=== PATIENT | female | born 1955 | race Hispanic/Latino ===

== ENCOUNTER 2020-11-10 18:59 | Inpatient (IN) | payer MEDICARE, MEDICAID ==
[2020-11-10] MEDS ORDERED: Vancomycin 1 GM/200 ML BAG ONE (20:28)
[2020-11-10] MEDS ORDERED: Acetaminophen 500 MG TAB ONE (20:28)
--- NOTE | 2020-11-10 20:33 | RAD ---
Exam: Right toes 2 views HISTORY: Gangrenous second toe. FINDINGS: Soft tissue ulceration and subcutaneous emphysema suggesting soft tissue abscess. Mild bone demineralization and lucency suggesting osteomyelitis involving the middle and proximal phalanx. There appears to be a fracture involving the distal aspect of the proximal phalanx. IMPRESSION: Osteomyelitis, cellulitis and fracture.
--- NOTE | 2020-11-10 20:33 | RAD ---
Exam: Chest one view HISTORY:Tachycardia. Comparison: 02/14/2014 FINDINGS: Cardiac silhouette: Normal Aorta: Unremarkable Pulmonary vessels: Normal Costophrenic angles: Clear LUNGS: No masses or consolidation. Pneumothorax: None Osseous abnormalities: None IMPRESSION: No acute cardiopulmonary process.
[2020-11-10 20:42] LABS: #Eosinphils 0.2 thou/uL (0.0-0.7); #Lymphocytes 1.2 thou/uL (1.20-3.40); #Monocytes 0.6 thou/uL (0.11-0.59); #Neutrophils 11.8 thou/uL (1.40-6.50); %Basophils 0.1 % (0.0-1.0); %Eosinophils 1.2 % (0.0-10.0); %Monocytes 4.3 % (0.0-10.0); %Neutrophils 85.4 % (42.0-75.0); Hemoglobin 9.7 g/dL (12.0-16.0); Mean Corpuscular HGB CONC 33.6 g/dL (32.0-36.0); Mean Corpuscular Hemoglobin 28.1 pg (27.0-31.0); Mean Corpuscular Volume 83.6 fL (78.0-98.0); Mean Platelet Volume 7.2 fL (7.4-10.4); Platelet Count 505 thou/uL (130-400); RBC Distribution Width 11.6 % (11.5-14.5); Red Blood Cell (RBC) Count 3.46 mill/uL (4.20-5.40); White Blood Cell (WBC) Count 13.9 thou/uL (4.8-10.8)
[2020-11-10 20:48] LABS: PTT 35.5 sec (22.9-36.1); Prothrombin Time 13.7 sec (12.0-14.7)
[2020-11-10 21:04] LABS: ALT (SGPT) 8 U/L (8-55); AST (SGOT) 6 U/L (5-34); Albumin 3.5 g/dL (3.4-4.8); Alkaline Phosphatase 103 U/L (40-110); Anion Gap 15 mmol/L (10-20); BUN (Urea Nitrogen) 28 mg/dL (9.8-20.1); Bilirubin, Total 0.2 mg/dL (0.2-1.2); CK (CPK) 16 U/L (29-168); CRP (Inflammatory) 16.38 mg/dL (= or < 0.5); Calc. Creatinine Clearance 0 mL/min (70-130); Calcium 9.5 mg/dL (7.8-10.44); Carbon Dioxide 27 mmol/L (23-31); Chloride 103 mmol/L (98-107); Glucose 185 mg/dL (80-115); Potassium 4.3 mmol/L (3.5-5.1); Protein, Total 8.5 g/dL (6.0-8.3); Sodium 141 mmol/L (136-145)
--- NOTE | 2020-11-10 21:37 | PDOC.FPRHP ---
- History of Present Illness Chief Complaint: R foot pain History of Present Illness: Pt is a 65 yo female with hx of DM, PVD, L AKA who presents with R foot pain. She is a poor historian, with possible ID, and no family was at bedside or able to be reached. She says her right foot was red and hurting "for a while". She says she lives at home with her and uses a wheelchair to get around. She was able to tell us that she has been taking her medicine as prescribed. She admits to nausea and vomiting but denies fever, body aches, cough congestion, SOB or CP. ED Course: Vancomycin, Unsayn, 1L NS - Allergies/Adverse Reactions Allergies Allergy/AdvReac Type Severity Reaction Status Date / Time No Known Allergies Allergy Verified 11/10/20 23:34 - Home Medications Medication Instructions Recorded Confirmed Type Aspirin [Ecotrin Low Strength] 81 mg PO DAILY #0 tab 04/01/14 11/10/20 Rx Lisinopril [Zestril] 2.5 mg PO DAILY #0 tab 04/01/14 11/10/20 Rx metFORMIN [Glucophage] 850 mg PO BID-WM 08/21/15 11/10/20 History - History PMHx: DMII, HTN, PVD PSHx: left AKA (2013) FHx: non-contributory Social: Denies tobacco use, says she drinks alcohol on occasion, denies drug use. Lives with in [place]. - Review of Systems General: denies: fever/chills Eyes: denies: eye pain, vision changes ENT: denies: nasal congestion, rhinorrhea Respiratory: denies: cough, congestion, shortness of breath Cardiovascular: denies: chest pain, edema Gastrointestinal: reports: nausea, vomiting Genitourinary: denies: dysuria Skin: reports: lesions Musculoskeletal: reports: pain - Vital signs BP: 131/98 HR: 108 RR: 29 Tmax: 99.6F Pox: 99% on RA Wt: 40kg - Physical Exam Constitutional: NAD HEENT: normocephalic and atraumatic, no scleral icterus, grossly normal vision, grossly normal hearing Neck: supple, trachea midline Heart: normal S1/S2, no murmurs/rubs/gallops -Heart: tachycardic, regular rhythm Lungs: CTAB, no respiratory distress, no wheezing Abdomen: soft, non-tender, bowel sounds present -Musculoskeletal: L AKA, LUE contracture Neurological: no focal deficit -Neurological: decreased sensation of R LE -Skin: R second toe gangrenous, erythema at base of second toe and on plantar surface of foot Heme/Lymphatic: no unusual bruising or bleeding FMR H&P: Results - Labs Result Diagrams: 11/11/20 06:44 11/11/20 06:44 Lab results: WBC 13.9 thou/uL (4.8-10.8) H 11/10/20 20:27 Hgb 9.7 g/dL (12.0-16.0) L 11/10/20 20:27 Hct 29.0 % (36.0-47.0) L 11/10/20 20:27 MCV 83.6 fL (78.0-98.0) 11/10/20 20:27 Plt Count 505 thou/uL (130-400) H 11/10/20 20:27 Neutrophils % 85.4 % (42.0-75.0) H 11/10/20 20:27 Sodium 141 mmol/L (136-145) 11/10/20 20:27 Potassium 4.3 mmol/L (3.5-5.1) 11/10/20 20:27 Chloride 103 mmol/L (98-107) 11/10/20 20:27 Carbon Dioxide 27 mmol/L (23-31) 11/10/20 20:27 BUN 28 mg/dL (9.8-20.1) H 11/10/20 20:27 Creatinine 1.03 mg/dL (0.6-1.1) 11/10/20 20:27 Glucose 185 mg/dL (80-115) H 11/10/20 20:27 Lactic Acid 1.3 mmol/L (0.5-2.2) 11/10/20 20:27 Calcium 9.5 mg/dL (7.8-10.44) 11/10/20 20:27 Total Bilirubin 0.2 mg/dL (0.2-1.2) 11/10/20 20:27 AST 6 U/L (5-34) 11/10/20 20:27 ALT 8 U/L (8-55) 11/10/20 20:27 Alkaline Phosphatase 103 U/L (40-110) 11/10/20 20:27 Creatine Kinase 16 U/L (29-168) L 11/10/20 20:27 C-Reactive Protein 16.38 mg/dL (= or < 0.5) H 11/10/20 20:27 Serum Total Protein 8.5 g/dL (6.0-8.3) H 11/10/20 20:27 Albumin 3.5 g/dL (3.4-4.8) 11/10/20 20:27 FMR H&P: A/P - Plan 65yo female w/ PMH DM, PVD, L AKA who presents with R foot pain. #Sepsis 2/2 osteomyelitis and surrounding cellulitis of R second toe -WBC 12.9, HR 120 on arrival to ED, Tmax 99.8F -XR R foot: osteomyelitis, cellulitis, fracture of 2nd toe -hx of PVD and L AKA in 2013 -CRP 16, pending procal, BCx -Abx: Vanc and Unasyn given in ED, will not continue Unasyn but will add cefe pime -s/p 1L NS in ED, will continue mIVF -will consult CV surgery in the morning for further evaluation #anemia -H/H 9.7, MCV 84 -no recorded history of anemia or workup -pending iron, ferritin, TIBC, B12, folate #suspected CKD3 vs JESSICA -BUN/Cr 28/1.03, GFR 54 -no recent labs for comparison -will recheck in am #DM -pending A1c -held metformin for now for possible contrast studies tomorrow -accuchecks ACHS, mild SSI #HTN -continue home meds #PVD -added statin, may need to adjust dose pending lipid panel Code: Full PCP: Obey IVF: LR @ 80ml/hr DVT ppx: held pending surgery recs Dispo: Stable, admit to medical, continue broad spectrum Abx, will consult CV surgery in am, appreciate recs. LOS>48hrs FMR H&P: Upper Level - Pertinent history PCP: JORDAN- Frida Barnhart HPI: 65YOF with a PMH notable for DMII, HTN, PVD s/p left AKA & MR who presented to the ED via EMS for right toe pain. Of note, history from patient was limited 2/2 intellectual impairment and dysarthria noted on exam. Basic report from the patient was that she has had right toe pain for not very long that has not gotten any better prompting her visit to the ED for evaluation. Endorses some associated nausea but denied any associated fever/chills. Does endorse foot redness and swelling as well. ED course: IV vancomycin & unasyn, 1L NS & 1g PO tylenol - Pertinent findings Labs/Imaging: right foot x-ray: osteomyelitis in middle & proximal second phalanx with surrounding cellulitis and fracture of distal proximal second phalanx of right foot WBC 13.9 CRP 16 Plts 505 Hgb 9.7 BUN/Cr 28/1.03 eGFR 54 BG 185 REVIEW OF SYSTEMS: 12 point ROS negative except what was mentioned in HPI Vitals: BP: 131/98 HR: 108 RR: 29 Tmax: 99.6F Pox: 99% on RA Wt: 40.8kg PHYSICAL EXAMINATION: General: Sitting up in bed in NAD HEENT: normocephalic atraumatic Neck: Supple. Full ROM. Heart/Cardiovascular System: Tachycardic with regular rhythm, no murmurs noted Lungs/Respiratory System: CTAB Abdomen/Gastro-Intestinal System: soft w/ no mild suprapubic abdominal tenderness, normal bowel sounds Extremities: Warm R extremity. s/p left AKA. R foot and leg with decreased sensation but NL ROM. Erythema over bottom of right foot and gangrenous 2nd toe on right foot. Trace palpable dorsalis pedis pulse noted in R foot. Neuro: participant administrator grossly intact; significant dysarthria with contracture in LUE noted; nonfocal Skin: gangrenous 2nd toe on right foot with erythema over plantar surface of foot and around based of second toe - Plan Date/Time: 11/10/202135 [place], have evaluated this patient and agree with findings/plan as outlined by intern product marketing manager resident. Pertinent changes/additions are listed here. A/P: 65YOF with a PMH notable for DMII, HTN, PVD s/p left AKA & MR who presented to the ED via EMS for right toe pain & was found to be septic 2/2 osteomyelitis & cellulitis of the right second toe. #Sepsis 2/2 osteomyelitis, cellulitis & fracture of right second toe: -Patient met sepsis criteria on arrival with a HR in the 110-120s with a WBC count of 13.9 in the setting of osteo with surrounding cellulitis identified on exam & x-ray. Was given IV vanc & unasyn in the ED as well as 1L bolus. Will continue IV vanc but will switch to cefepime instead of unasyn for better GN coverage. Bld cultures & procal pending. Will continue mIVFs overnight as patient was still tachycardic on exam. PRN Tylenol for pain control. #JESSICA vs. CKDII-III: - Per chart review baseline renal function eGFR has varied from 50-80s since 2013. No recent labs for comparison but 54 on presentation today w/ Cr of 1.03. Will continue mIVFs & recheck w/ AM labs. Will renally dose meds PRN. #Normocytic anemia: Hgb of 9.5 on presentation w/ NL MCV. Will order iron studies & B12/folate levels to workup possible etiologies for this. #DMII: - A1c pending. Per chart review was 10.3 in 02/2014. Will hold metformin pending possible procedure in AM and will continue ACHS accuchecks w/ mild SSI in the meantime. #HTN: - Will resume home Lisinopril. #PVD s/p left AKA: -Per chart review aortogram from 2013 showed severe B/L PVD. Will plan to consult CV surg in the AM to determine level of amputation for current infection as suspect PVD has worsened as patient is not on any statin therapy. Will start that tonight & continue home ASA. Lipid panel pending. PCP: CHAZ Barnhart ABx: Vancomycin & Cefepime (11/10) IVFs: LR @ 80mL/hr VTE PPX: Holding for possible procedure tomorrow GI PPX: None Code status: FULL CODE Dispo: Will admit to medical for continued IV abx with plans to consult vascular surgery in the AM for evaluation for medically indicated amputation in her RLE. Addendum - Attending - Attending Attestation Date/Time: 11/10/20 2841 I personally evaluated the patient and discussed the management with Dr. Garcia I agree with the History, Examination, Assessment and Plan documented above with any addition or exceptions noted below - 65YOF with a PMH notable for DMII, HTN, PVD s/p left AKA & MR who presented to the ED via EMS for right toe pain. Of note, history from patient was limited 2/2 intellectual impairment and dysarthria noted on exam. Basic report from the patient was that she has had right toe pain for not very long that has not gotten any better prompting her visit to the ED for evaluation. Endorses some associated nausea but denied any fever/chills. Does endorse foot redness and swelling as well. Afebrile BP 131/98 P105 Exam repeated by me and agree with resident's findings. Labs: WBC= 13.9, Um=790, K=4.3, Dv=177, CO2=27, BUN/Cr=28/1.03, Dmxi=385, CRP=16.38, Lactic acid=1.3 Toe x-ray= c/w osteomyelitis of 2nd toe. A/P: 1) Sepsis secondary to osteomyelitis of right 2nd toe - Admit to medical. Start vanc/Cefepime. Blood cultures obtained. 2) Osteomyelitis with gangrene - consult CV surgery as patient has known PVD. 3) DM- monitor BG.
[2020-11-10] MEDS ORDERED: Ampicillin 2 GM VIAL ONE (21:38)
[2020-11-10] MEDS ORDERED: Ampicillin/Sulbactam 3 GM in Sodium Chloride 0.9% 100 ML IVPB SCH (21:45)
[2020-11-10] MEDS ORDERED: Dextrose 5% in Water 1,000 ML IV PRN (22:17)
[2020-11-10] MEDS ORDERED: Dextrose 50% Abboject 50 ML SYRINGE SLOW IVP PRN (22:17)
[2020-11-10] MEDS ORDERED: Ondansetron PF 4 MG/2 ML Vial IVP PRN (22:17)
[2020-11-10] MEDS ORDERED: Ondansetron ODT 4 MG TAB PO PRN (22:17)
[2020-11-10 23:35] LABS: Hemoglobin A1c 7.8 % (4.0-6.0)
[2020-11-10 23:47] LABS: Iron 12 ug/dL (50-170); Iron Binding Capacity, Total 188 mcg/dL (265-497)
[2020-11-11 00:09] LABS: Ferritin 289.09 ng/mL (10-291)
[2020-11-11] MEDS: Lactated Ringer's 1,000 ML IV SCH ×2 (00:37→12:24)
[2020-11-11] MEDS: Cefepime 2 GM in Sodium Chloride 0.9% 100 ML IVPB SCH ×3 (00:38→23:46)
[2020-11-11 02:25] LABS: SARS-CoV-2 MS2 Positive; SARS-CoV-2 N Gene Negative; SARS-CoV-2 S Gene Negative; SARS-CoV-2 by NAA Not Detected (NotDetected); SARS-CoV-2 orf1ab Negative
[2020-11-11] MEDS: HumaLOG 300 UNITS/3 ML VIAL SC PRN ×2 (06:14→21:23)
--- NOTE | 2020-11-11 06:48 | PDOC.FM ---
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 She denies any pain. It is difficult to obtain history due to a likely intellectual deficit. She has no concerns at this time. She lives at home with her . She made comments her is a daily drinker. No fevers, chills. - Objective Vital Signs & Weight: Vital Signs (12 hours) Temp Pulse Resp BP Pulse Ox 11/11/20 05:50 98.3 F 91 16 133/67 11/10/20 22:50 98.3 F 102 H 18 165/71 H 98 Weight Weight 40.8 kg I&O: 11/09/20 11/10/20 11/11/20 06:59 06:59 06:59 Intake Total 463 Output Total 500 Balance -37 Result Diagrams: 11/11/20 06:44 11/11/20 06:44 Phys Exam - Physical Examination Constitutional: NAD HEENT: PERRLA, moist MMs Neck: no JVD, full ROM Respiratory: no wheezing, clear to auscultation bilateral Cardiovascular: RRR, no significant murmur Gastrointestinal: soft, positive bowel sounds decreased DP on R foot, L AKA Neurological: non-focal, moves all 4 limbs Psychiatric: A&O x 3 Skin: no rash, cap refill <2 seconds Dx/Plan - Plan Plan: 65yo female w/ PMH DM, PVD, L AKA who presents with R foot pain. #Sepsis (resolved) #Osteomyelitis, Dry Gangrene, PVD -consult CV Surgery, Dr. Obando has seen pt in 2016; appreciate rec's - hx of PVD, dry gangrene in 2016 but no surgery performed - L AKA due to similar event in 2016 #Normocytic anemia 2/2 iron, folate, b12 deficiency -H/H 9.7/29, MCV 84 -Start iron, folate, b12 -Likely does not have a good diet at home #suspected CKD3 vs JESSICA -BUN/Cr 03/12.03, GFR 54 -no recent labs for comparison #DM -held metformin for now for possible contrast studies tomorrow -accuchecks ACHS, mild SSI #HTN -continue home meds #PVD -added statin # CM Consult -Inquire on home setting Code: Full PCP: Obey IVF: LR @ 80ml/hr DVT ppx: held pending surgery recs Dispo: Stable, admit to medical. LOS>48hrs. Will transfer care to [facility] on 11/12. Discussed with Mary on 11/11. Addendum - Attending - Attending Attestation Date/Time: 11/11/20 5924 I personally evaluated the patient and discussed the management with Dr. Baldwin. I agree with the History, Examination, Assessment and Plan documented above with any addition or exceptions noted below. Patient here for dry gangrene and concern for osteo. She has history of prior amputation and PVD. Continue abx, wound care, consult surgery. Patient is a patient of [facility] so care sill be transitioned to the hospitalists tomorrow.
[2020-11-11 07:05] LABS: #Eosinphils 0.1 thou/uL (0.0-0.7); #Lymphocytes 1.1 thou/uL (1.20-3.40); #Monocytes 0.7 thou/uL (0.11-0.59); #Neutrophils 10.8 thou/uL (1.40-6.50); %Basophils 0.2 % (0.0-1.0); %Eosinophils 0.9 % (0.0-10.0); %Lymphocytes 8.3 % (21.0-51.0); %Monocytes 5.2 % (0.0-10.0); %Neutrophils 85.4 % (42.0-75.0); Hemoglobin 9.5 g/dL (12.0-16.0); Mean Corpuscular HGB CONC 33.1 g/dL (32.0-36.0); Mean Corpuscular Hemoglobin 27.6 pg (27.0-31.0); Mean Corpuscular Volume 83.4 fL (78.0-98.0); Mean Platelet Volume 7.4 fL (7.4-10.4); Platelet Count 441 thou/uL (130-400); RBC Distribution Width 11.5 % (11.5-14.5); Red Blood Cell (RBC) Count 3.42 mill/uL (4.20-5.40); White Blood Cell (WBC) Count 12.7 thou/uL (4.8-10.8)
[2020-11-11 07:28] LABS: ALT (SGPT) 7 U/L (8-55); AST (SGOT) 8 U/L (5-34); Albumin 3.3 g/dL (3.4-4.8); Alkaline Phosphatase 92 U/L (40-110); Anion Gap 16 mmol/L (10-20); BUN (Urea Nitrogen) 20 mg/dL (9.8-20.1); Bilirubin, Total 0.3 mg/dL (0.2-1.2); Calc. Creatinine Clearance 45 mL/min (70-130); Calcium 9.5 mg/dL (7.8-10.44); Carbon Dioxide 23 mmol/L (23-31); Chloride 105 mmol/L (98-107); Globulin 4.5 g/dL (2.4-3.5); Glucose 178 mg/dL (80-115); Potassium 4.4 mmol/L (3.5-5.1); Protein, Total 7.8 g/dL (6.0-8.3); Sodium 140 mmol/L (136-145)
[2020-11-11] MEDS ORDERED: Ferrous Sulfate 325 MG TAB PO SCH (08:00)
[2020-11-11] MEDS: Multivitamin W/ Minerals 1 TAB PO SCH (08:38)
[2020-11-11] MEDS: Aspirin 81 mg Enteric Coated Tablet PO SCH (08:38)
[2020-11-11] MEDS: Ferrous Sulfate 325 MG TAB PO SCH (08:39)
[2020-11-11] MEDS ORDERED: Cefepime 2 GM in Sodium Chloride 0.9% 100 ML IVPB SCH (09:00)
[2020-11-11] MEDS ORDERED: Vancomycin 1 GM in Premix Bag 1 BAG IVPB SCH (09:00)
[2020-11-11] MEDS ORDERED: FLU VACC QS2020-21(65YR UP)/PF 240 MCG/0.7 ML SYRINGE IM ONE (09:00)
[2020-11-11] MEDS: Folic Acid 1 MG TAB PO SCH (10:14)
[2020-11-11] MEDS: Cyanocobalamin (Vitamin B-12) 1,000 MCG TAB PO SCH (10:14)
[2020-11-11] MEDS: Lisinopril 2.5 MG TAB PO SCH (10:14)
--- NOTE | 2020-11-11 12:41 | CON ---
DATE OF CONSULTATION: 11/11/2020 REQUESTING PHYSICIAN: Dr. Baldwin. CHIEF COMPLAINT: Gangrenous changes, right 2nd toe. HISTORY OF PRESENT ILLNESS: The patient is a 65-year-old woman who in 2013 was seen and evaluated by Dr. Bronson for ischemic changes affecting her left foot. At that time, he described her as having cerebral palsy and mild mental retardation. He did arteriography at that time and described it as showing severe peripheral vascular disease bilaterally. On the left side, she had marginal vasculature with single-vessel runoff to the foot. He felt the vessels were too small to lend themselves to any sort of percutaneous intervention that offered her a femoral distal bypass in an attempt for limb salvage. At that time, she and her family refused any sort of intervention, but returned later with progression of ischemic changes and she underwent a left hqdox-hax-phxr amputation. Dr. Obando radiation oncology therapist and then Dr. Bronson saw her again in 2015 for problems related to some blistering and ulceration on the toe on the right foot. At that time, Dr. Bronson opted to not pursue any sort of interventional evaluation or treatment and evidently the ulceration healed. Since then, she has been lost to follow up. The patient is now admitted and her speech as others have noted is very difficult to understand. To my ear almost nothing she says, even resembles a recognizable word, although she seems to understand much of what I say. She seems to indicate that the foot does not hurt her, although documentation in the chart indicates that the pain in the foot is why she was brought to the emergency room. She does not walk. She does not have a prosthesis for her left bhsff-ody-sxmu amputation and she gets around in the house in her wheelchair although I was not able to understand what she was trying to explain to me about how she gets around in a wheelchair and whether she is able to bear weight on her remaining foot. PAST MEDICAL HISTORY: Also, significant for diabetes and hypertension. HOME MEDICATIONS: 1. Metformin. 2. Lisinopril. 3. Baby aspirin. SOCIAL HISTORY: She denies smoking. REVIEW OF SYSTEMS: Other than seeming to indicate that the foot does not hurt her, she is not able to provide a review of systems and there was no family available to fill in any of the gaps. PHYSICAL EXAMINATION: GENERAL: On exam, she seems alert and oriented, but her speech is unintelligible. She has some truncal obesity and very thin extremities. VITAL SIGNS: Her temperature is 97.9. She has been afebrile through this course. Heart rate 93, blood pressure 127/64, room air O2 saturations are in the low to mid 90s. NECK: She has bilateral carotid bruits. CHEST: Clear to auscultation. HEART: She has a regular rate and rhythm. EXTREMITIES: She has a left hgwxq-gjl-huvp amputation stump. She has a palpable, but somewhat diminished right femoral pulse that is associated with a bruit. I am not able to palpate popliteal or pedal pulses on the right side. The entirety of her right 2nd toe is black, but it is dry. Capillary refill in the great toe is about 2 to perhaps 3 seconds, but it is pink. There is no overt temperature demarcation. The skin below the knee appears to be very thin. Per arteriogram from 2013 was described by contemporaneous viewers as having some external iliac disease on the right side, diffuse SFA disease and then single-vessel disease through a somewhat diseased anterior tibial. Toe x-rays from this admission seemingly showed some vascular calcifications in the distal foot and foot x-rays from 2016 showed vascular calcifications in the anterior tibial and posterior tibial in the lower ankle extending well into the foot, both in the posterior tibial and dorsalis pedis distributions and then on into the digital vessels along the great toe. IMPRESSION AND RECOMMENDATIONS: There probably is not much utility in repeating arteriography. She still has a palpable femoral pulse, so I do not think that an inflow procedure is apt to make a big enough difference to allow for a simple toe amputation to heal. She might be able to heal a nmchb-oxz-wltd amputation, but the skin there is so thin that I would anticipate a lot of local wound problems even if underlying vascularities were adequate. Additionally with her essentially wheelchair-bound and non-ambulator, it is not clear what the utility of a dxthm-lyu-sddy amputation would be. She then inevitably wind up with a flexion contracture of that knee that may prove more of a problem than any assistance. She had enough vascular calcifications 4 or 5 years ago, but there is no real reason to think that a marginally bypassable tibial vessel in 2013 would be good enough to bypass now in 2020. Fortunately, there are no cellulitic changes. It does not seem to be hurting her very much. She is certainly not sick from this dry gangrenous toe. Because at this point not being able to effectively communicate with the patient, there really is nothing that I can do. I have discussed briefly with her and with the nurse taking care of her that I would need to be able to communicate with the family, other physicians taking care of her have also observed that no family has been with her or no family could be reached. The nurse said that a family member had called, but visit. Job ID: [id number]
[2020-11-11 14:26] LABS: Phosphorus 2.7 mg/dL (2.3-4.7)
[2020-11-11] MEDS: Atorvastatin Calcium 40 MG TAB PO SCH (21:22)
[2020-11-11] MEDS: Vancomycin HCl 750 MG in Sodium Chloride 0.9% 250 ML 250 ML IVPB SCH (21:22)
[2020-11-12] MEDS: Lactated Ringer's 1,000 ML IV SCH ×2 (02:55→15:51)
[2020-11-12] MEDS: HumaLOG 300 UNITS/3 ML VIAL SC PRN ×4 (06:40→21:21)
[2020-11-12] MEDS: Cyanocobalamin (Vitamin B-12) 1,000 MCG TAB PO SCH (09:07)
[2020-11-12] MEDS: Aspirin 81 mg Enteric Coated Tablet PO SCH (09:07)
[2020-11-12] MEDS: Folic Acid 1 MG TAB PO SCH (09:07)
[2020-11-12] MEDS: Multivitamin W/ Minerals 1 TAB PO SCH (09:07)
[2020-11-12] MEDS: Lisinopril 2.5 MG TAB PO SCH (09:08)
[2020-11-12] MEDS: Cefepime 2 GM in Sodium Chloride 0.9% 100 ML IVPB SCH (11:51)
--- NOTE | 2020-11-12 17:38 | PDOC.EVN ---
Event Note - Event Note Event Note: Confirmed transfer of care with [facility] on 11/12/20 1918. Pt seen by [facility] 11/11/20 and transferred 11/12/20. Robson Baldwin DO
--- NOTE | 2020-11-12 19:02 | PDOC.HOSPP ---
- Subjective Encounter Date: 11/12/20 Subjective: does not report any complaints. - Objective Vital Signs & Weight: Vital Signs (12 hours) Temp Pulse Resp BP Pulse Ox 11/12/20 16:52 99.9 F H 98 12 134/71 97 11/12/20 11:53 98.3 F 95 20 113/57 L 100 11/12/20 09:08 87 11/12/20 08:00 98.4 F 87 20 126/61 96 Weight Weight 89 lb 15.178 oz I&O: 11/11/20 11/12/20 11/13/20 06:59 06:59 06:59 Intake Total 463 1063 Output Total 500 3000 350 Balance -37 -1937 -350 Result Diagrams: 11/11/20 06:44 11/11/20 06:44 Additional Labs: Accuchecks 11/12/20 11/12/20 11/12/20 16:54 10:57 06:21 POC Glucose 243 H 292 H 174 H 11/11/20 11/11/20 21:04 16:54 POC Glucose 243 H 117 H Hospitalist ROS - Medication Medications: Active Medications Generic Name Dose Route Start Last Admin Trade Name Adamq PRN Reason Stop Dose Admin Aspirin 81 mg 11/11/20 09:00 11/12/20 09:07 Aspirin 81 Mg Enteric Coated Tablet PO 81 mg DAILY THERESA Administration Atorvastatin Calcium 40 mg 11/11/20 21:00 11/11/20 21:22 Atorvastatin Calcium 40 Mg Tab PO 40 mg HS THERESA Administration Cyanocobalamin 1,000 mcg 11/11/20 09:00 11/12/20 09:07 Cyanocobalamin (Vitamin B-12) 1,000 Mcg Tab PO 1,000 mcg DAILY THERESA Administration Ferrous Sulfate 325 mg 11/11/20 08:00 11/11/20 08:39 Ferrous Sulfate 325 Mg Tab PO 325 mg Q2D THERESA Administration Folic Acid 1 mg 11/11/20 09:00 11/12/20 09:07 Folic Acid 1 Mg Tab PO 1 mg DAILY THERESA Administration Cefepime HCl 2 gm/ Sodium 100 mls @ 200 mls/hr 11/10/20 23:59 11/12/20 11:51 Chloride IVPB 100 mls 1200,2359 THERESA Administration Lactated Ringer's 1,000 mls @ 80 mls/hr 11/10/20 23:00 11/12/20 15:51 Lactated Ringer's IV 1,000 mls .[id number] THERESA Administration Vancomycin HCl 750 mg/ Sodium 250 mls @ 250 mls/hr 11/11/20 21:00 11/11/20 21:22 Chloride IVPB 250 mls 2100 THERESA Administration Insulin Human Lispro 0 units 11/10/20 22:17 11/12/20 17:28 Humalog 300 Units/3 Ml Vial SC 3 unit .MILD SLIDING SCALE PRN Administration Mild Correctional Scale Insulin Human Lispro 0 units 11/10/20 22:17 11/11/20 21:23 Humalog 300 Units/3 Ml Vial SC 2 unit .BEDTIME SLIDING SC PRN Administration Bedtime Correctional Scale Iron/Minerals/Multivitamins 1 tab 11/11/20 09:00 11/12/20 09:07 Multivitamin W/ Minerals 1 Tab PO 1 tab DAILY THERESA Administration Lisinopril 2.5 mg 11/11/20 09:00 11/12/20 09:08 Lisinopril 2.5 Mg Tab PO 2.5 mg DAILY THERESA Administration - Exam General Appearance: awake alert Eye: PERRL, anicteric sclera ENT: normocephalic atraumatic Neck: supple, symmetric, no JVD Heart: RRR, murmur present, III/IV Respiratory: CTAB, no wheezes Gastrointestinal: soft, non-tender, non-distended Extremities: no cyanosis (right second toe is necrotic and dry.) Skin: normal turgor Neurological: cranial nerve grossly intact Musculoskeletal: normal tone Hosp A/P (1) Dry gangrene Code(s): I96 - GANGRENE, NOT ELSEWHERE CLASSIFIED Status: Acute (2) DM2 (diabetes mellitus, type 2) Status: Chronic (3) HTN (hypertension) Code(s): I10 - ESSENTIAL (PRIMARY) HYPERTENSION Status: Chronic (4) Peripheral arterial occlusive disease Code(s): I77.9 - DISORDER OF ARTERIES AND ARTERIOLES, UNSPECIFIED Status: Chronic (5) Cerebral palsy Code(s): G80.9 - CEREBRAL PALSY, UNSPECIFIED Status: Acute - Plan patient has a dry gangrene and as per Vascular surgery she would benefit from a Vascular intervention or from a BKA, I will consult podiatry to see if any debridement can be done otherwise will continue with the IV antibiotics for now. I will keep her on insulin SS for now. Will stop her on IVF for now and recheck her labs in am. As per RN, no family member responding to our calls, CM consulted and possibly APS will be called at some point. Continue with BP control.
[2020-11-12 20:19] LABS: Vancomycin, Trough 6.1 ug/mL
[2020-11-12] MEDS: Vancomycin HCl 750 MG in Sodium Chloride 0.9% 250 ML 250 ML IVPB SCH (21:22)
[2020-11-12] MEDS: Atorvastatin Calcium 40 MG TAB PO SCH (21:41)
[2020-11-13] MEDS: Cefepime 2 GM in Sodium Chloride 0.9% 100 ML IVPB SCH ×2 (00:23→12:21)
[2020-11-13] MEDS: HumaLOG 300 UNITS/3 ML VIAL SC PRN ×4 (05:24→21:33)
[2020-11-13 06:34] LABS: #Basophils 0.1 thou/uL (0.0-0.2); #Eosinphils 0.2 thou/uL (0.0-0.7); #Lymphocytes 1.5 thou/uL (1.20-3.40); #Monocytes 0.8 thou/uL (0.11-0.59); #Neutrophils 9.6 thou/uL (1.40-6.50); %Basophils 0.5 % (0.0-1.0); %Eosinophils 1.6 % (0.0-10.0); %Lymphocytes 12.5 % (21.0-51.0); %Monocytes 6.8 % (0.0-10.0); %Neutrophils 78.6 % (42.0-75.0); Hemoglobin 8.7 g/dL (12.0-16.0); Mean Corpuscular HGB CONC 33.1 g/dL (32.0-36.0); Mean Corpuscular Hemoglobin 27.4 pg (27.0-31.0); Mean Corpuscular Volume 82.7 fL (78.0-98.0); Mean Platelet Volume 7.2 fL (7.4-10.4); Platelet Count 391 thou/uL (130-400); RBC Distribution Width 11.4 % (11.5-14.5); Red Blood Cell (RBC) Count 3.16 mill/uL (4.20-5.40); White Blood Cell (WBC) Count 12.2 thou/uL (4.8-10.8)
[2020-11-13 06:57] LABS: Anion Gap 11 mmol/L (10-20); BUN (Urea Nitrogen) 12 mg/dL (9.8-20.1); Calc. Creatinine Clearance 45 mL/min (70-130); Carbon Dioxide 29 mmol/L (23-31); Chloride 103 mmol/L (98-107); Glucose 161 mg/dL (80-115); Potassium 4.3 mmol/L (3.5-5.1); Sodium 139 mmol/L (136-145)
[2020-11-13] MEDS: Folic Acid 1 MG TAB PO SCH (09:20)
[2020-11-13] MEDS: Cyanocobalamin (Vitamin B-12) 1,000 MCG TAB PO SCH (09:20)
[2020-11-13] MEDS: Aspirin 81 mg Enteric Coated Tablet PO SCH (09:20)
[2020-11-13] MEDS: Lisinopril 2.5 MG TAB PO SCH (09:20)
[2020-11-13] MEDS: Vancomycin HCl 500 MG in Sodium Chloride 0.9% 100 ML IVPB SCH ×2 (09:20→20:55)
[2020-11-13] MEDS: Multivitamin W/ Minerals 1 TAB PO SCH (09:20)
[2020-11-13] MEDS: Ferrous Sulfate 325 MG TAB PO SCH (09:22)
--- NOTE | 2020-11-13 12:55 | PQF ---
CLINICAL DOCUMENTATION CLARIFICATION FORM: Dear : Demario Date / Time: 11/13/20 1158 Please exercise your independent, professional judgment in responding to the clarification form. Clinical indicators are provided on the bottom of this form for your review Please check appropriate box(es): Osteomyelitis: [ x ] Acute [ ] Chronic [ ] Other diagnosis [ ] Unable to determine In addition, please specify: Present on Admission (POA): [x ] Yes [ ] No [ ] Unable to determine To be completed by CDI/Coding staff for physician review: Present Clinical Indicators - Signs / Symptoms / Labs Results and Location in Medical Record [x ] Mild bone demineralization & lucency suggesting ostetomyelitis Xray 11/10/20 [ ] [ ] [ ] Present Risk Factors Results and Location in Medical Record [ x ] Sepsis 2/2 Osteomyelitis and surrounding cellulitis of Rt. 2nd toe H&P 11/10/20 [ ] [ ] [ ] Present Treatments Results and Location in Medical Record [ x ] IV Vancomycin & Cefepim MAR 11/10/20 - 11/13/20 [ ] [ ] [ ] CDS/Distributor Publications Signature: Maegan Nagy Phone #: [phone] Date/Time: 11/13/20 0796 This is a permanent part of the Medical Record [facility]
--- NOTE | 2020-11-13 15:57 | PDOC.HOSPP ---
- Subjective Encounter Date: 11/13/20 Encounter Time: 09:30 Subjective: is awake, not in distress but keeps holding her right leg off and on has some odor to her gangrenous 2nd toe area - Objective Vital Signs & Weight: Vital Signs (12 hours) Temp Pulse Resp BP Pulse Ox 11/13/20 11:25 99.0 F 91 20 127/63 97 11/13/20 08:00 98.2 F 91 20 136/69 97 11/13/20 04:07 98.7 F 85 14 119/59 L 96 Weight Weight 89 lb 15.178 oz I&O: 11/12/20 11/13/20 11/14/20 06:59 06:59 06:59 Intake Total 1063 1223 Output Total 3000 6225 900 Balance -1937 -527 -900 Result Diagrams: 11/13/20 06:16 11/13/20 06:16 Additional Labs: Accuchecks 11/13/20 11/13/20 11/12/20 10:42 05:22 21:04 POC Glucose 261 H 173 H 261 H 11/12/20 16:54 POC Glucose 243 H Hospitalist ROS - Medication Medications: Active Medications Generic Name Dose Route Start Last Admin Trade Name Freq PRN Reason Stop Dose Admin Aspirin 81 mg 11/11/20 09:00 11/13/20 09:20 Aspirin 81 Mg Enteric Coated Tablet PO 81 mg DAILY THERESA Administration Atorvastatin Calcium 40 mg 11/11/20 21:00 11/12/20 21:41 Atorvastatin Calcium 40 Mg Tab PO 40 mg HS THERESA Administration Cyanocobalamin 1,000 mcg 11/11/20 09:00 11/13/20 09:20 Cyanocobalamin (Vitamin B-12) 1,000 Mcg Tab PO 1,000 mcg DAILY THERESA Administration Ferrous Sulfate 325 mg 11/11/20 08:00 11/13/20 09:22 Ferrous Sulfate 325 Mg Tab PO 325 mg Q2D THERESA Administration Folic Acid 1 mg 11/11/20 09:00 11/13/20 09:20 Folic Acid 1 Mg Tab PO 1 mg DAILY THERESA Administration Cefepime HCl 2 gm/ Sodium 100 mls @ 200 mls/hr 11/10/20 23:59 11/13/20 12:21 Chloride IVPB 100 mls 1200,2359 THERESA Administration Vancomycin HCl 500 mg/ Sodium 100 mls @ 100 mls/hr 11/13/20 09:00 11/13/20 09:20 Chloride IVPB 100 mls Q12HR THERESA Administration Insulin Human Lispro 0 units 11/10/20 22:17 11/13/20 12:51 Humalog 300 Units/3 Ml Vial SC 4 unit .MILD SLIDING SCALE PRN Administration Mild Correctional Scale Insulin Human Lispro 0 units 11/10/20 22:17 11/12/20 21:21 Humalog 300 Units/3 Ml Vial SC 3 unit .BEDTIME SLIDING SC PRN Administration Bedtime Correctional Scale Iron/Minerals/Multivitamins 1 tab 11/11/20 09:00 11/13/20 09:20 Multivitamin W/ Minerals 1 Tab PO 1 tab DAILY THERESA Administration Lisinopril 2.5 mg 11/11/20 09:00 11/13/20 09:20 Lisinopril 2.5 Mg Tab PO 2.5 mg DAILY THERESA Administration - Exam General Appearance: awake alert Eye: PERRL, anicteric sclera ENT: no oropharyngeal lesions, moist mucosa Neck: supple, no JVD Heart: RRR, no murmur Respiratory: no wheezes, no rales Gastrointestinal: soft, non-tender, non-distended, normal bowel sounds Extremities: no edema Extremities - other findings: right 2nd toe gangrene, eschar over mendiola Neurological: cranial nerve grossly intact, no focal deficits Hosp A/P (1) Dry gangrene Code(s): I96 - GANGRENE, NOT ELSEWHERE CLASSIFIED Status: Acute (2) Intellectual disability Code(s): F79 - UNSPECIFIED INTELLECTUAL DISABILITIES Status: Chronic (3) History of left above knee amputation Code(s): Z89.612 - ACQUIRED ABSENCE OF LEFT LEG ABOVE KNEE Status: Chronic (4) DM2 (diabetes mellitus, type 2) Status: Chronic Qualifiers: Diabetes mellitus jail insulin use: without terminal gauger supervisor use Diabetes mellitus complication status: with circulatory complication Diabetes mellitus complication detail: with peripheral angiopathy with gangrene Qualified Code(s): E11.52 - Type 2 diabetes mellitus with diabetic peripheral angiopathy with gangrene (5) HTN (hypertension) Code(s): I10 - ESSENTIAL (PRIMARY) HYPERTENSION Status: Chronic Qualifiers: Hypertension type: essential hypertension Qualified Code(s): I10 - Essential (primary) hypertension (6) Peripheral arterial occlusive disease Code(s): I77.9 - DISORDER OF ARTERIES AND ARTERIOLES, UNSPECIFIED Status: Chronic - Plan d/w CM for help with tracing family for consents/procedure if needed and placement if needed await opinion if anything to be done given pvd, intellectual disability, left aka. may need placement is on cefepime and vanc, asp, lipitor, oral iron if family agree for procedure likely on monday
--- NOTE | 2020-11-13 18:42 | CON ---
DATE OF CONSULTATION: 11/13/2020 CHIEF COMPLAINT: Right second toe gangrene. HISTORY OF PRESENT ILLNESS: The patient is a 65-year-old female. She has some degree of cerebral palsy/mental retardation. She is unable to communicate in a fashion that I or anybody else that I believe can understand. I attempted this both in Vietnamese and French. There are no family members present. I have reviewed the medical records from this hospitalization and from prior hospitalizations. She is admitted 2 days ago initially by the Family Medicine Service and currently on the Hospitalist Service for changes related to her right second toe. I am uncertain if she has had any pain from this or what prompted admission at this time. This has clearly been present for a long period of time. She tolerates all examination and intervention without any evidence of discomfort. She is unable to either understand her answer my question when I asked her if she has had any pain. She is status post left above-knee amputation in 2013. She was admitted to the hospital in 2016 for problems related to the right foot with cellulitic change, but no surgical intervention was performed at that time. She returns at this time as mentioned, for evaluation and treatment of problems related to this right 2nd toe. Wound Care Team has not been involved with her yet. Vascular Surgery has already evaluated her and made no firm recommendations. Blood cultures were obtained but reveal no growth. Laboratory studies have shown chronic anemia with current hemoglobin of 8.7. White blood cell count has been elevated between 12.2 and 13.9, but is generally trending downwards. Chemistries reveal normal electrolytes. She does have elevated glucose levels. Her hemoglobin A1c on this admission is 7.8. PAST MEDICAL HISTORY: Significant for diabetes mellitus and hypertension. PAST SURGICAL HISTORY: Significant for left above-knee amputation. MEDICATIONS: She apparently takes metformin and lisinopril. ALLERGIES: NO KNOWN DRUG ALLERGIES. PERSONAL SOCIAL HISTORY: Per chart, she does not smoke or drink alcohol. She apparently has a , who lives in [place], but he has not appeared at bedside during this hospitalization. REVIEW OF SYSTEMS: Not obtainable. FAMILY HISTORY: Not obtainable. PHYSICAL EXAMINATION: VITAL SIGNS: She has been afebrile during this hospitalization, pulse is 85 to 95, and blood pressure is 145/65. HEAD, EYES, EARS, NOSE, AND THROAT: Unremarkable. NECK: Supple. LUNGS: Clear to auscultation. CARDIAC: Regular rate and rhythm. ABDOMEN: Soft, nontender, and nondistended. EXTREMITIES: She has a well-healed left above-knee amputation. Her right lower extremity shows no significant abnormality other than the changes at the 2nd toe. There is dry gangrene and developing the distal two-thirds of the toe circumferentially. There is no dressing in place at this location. There is some mild drainage on the plantar and medial aspect of this. There is a bit of a foul smell from this. There is some erythema extending down onto the dorsum of the foot. There is also some superficial epidermis elevated on the plantar aspect, which was manually debrided. When I gently cleansed the toe, the eschar was elevated off the underlying tissue exposing some tendon. Pressure on this area led to some purulent discharge. None of this causes any discomfort. She has no palpable pulses on the foot. The foot, however, is warm and without evidence of significant ischemic change. ASSESSMENT AND PLAN: 1. The patient with dry gangrene of the distal right 2nd toe. There is exposed soft tissue without obvious sepsis at this location. I was hoping that this could be treated as a dry gangrene, however, there is no demarcation deeply within the toe that would allow for auto amputation. There is a chance therefore that she could require a digital amputation. Unfortunately, she appears to have significant peripheral vascular disease and a digital amputation has a good chance of changing into a transmetatarsal, possibly a below-knee or above-knee amputation. 2. Severe peripheral vascular disease. For now, I would recommend Betadine dressing changes to this area along with her IV antibiotics. I will reassess this in a couple of days. Depending upon its progress, may need to proceed with a digital amputation. I am hoping to avoid this because I believe this quickly changes into higher level amputations because of what I suspect is fairly severe peripheral vascular disease. Since she is lying comfortably and has full extension of her leg while in bed, I would likely recommend a [id number] amputation rather than above-knee amputation if it comes to that. Job ID: [id number]
[2020-11-13] MEDS: Atorvastatin Calcium 40 MG TAB PO SCH (20:54)
[2020-11-13] MEDS ORDERED: Sodium Chloride 0.9% 20 ML ONE (20:56)
[2020-11-14] MEDS: Cefepime 2 GM in Sodium Chloride 0.9% 100 ML IVPB SCH ×2 (00:28→11:33)
[2020-11-14] MEDS: HumaLOG 300 UNITS/3 ML VIAL SC PRN ×4 (06:43→20:41)
[2020-11-14 08:19] LABS: Vancomycin, Trough 11.1 ug/mL
[2020-11-14] MEDS: Vancomycin HCl 500 MG in Sodium Chloride 0.9% 100 ML IVPB SCH (09:20)
[2020-11-14] MEDS: Multivitamin W/ Minerals 1 TAB PO SCH (09:21)
[2020-11-14] MEDS: Folic Acid 1 MG TAB PO SCH (09:21)
[2020-11-14] MEDS: Lisinopril 2.5 MG TAB PO SCH (09:21)
[2020-11-14] MEDS: Aspirin 81 mg Enteric Coated Tablet PO SCH (09:21)
[2020-11-14] MEDS: metFORMIN 850 MG TAB PO SCH ×2 (09:21→16:44)
[2020-11-14] MEDS: Cyanocobalamin (Vitamin B-12) 1,000 MCG TAB PO SCH (09:21)
--- NOTE | 2020-11-14 14:07 | PDOC.HOSPP ---
- Subjective Encounter Date: 11/14/20 Encounter Time: 12:00 Subjective: awake, responds well to simple questions not in distress - Objective Vital Signs & Weight: Vital Signs (12 hours) Temp Pulse Resp BP Pulse Ox 11/14/20 11:38 97.9 F 96 16 135/63 98 11/14/20 07:47 98.4 F 95 16 118/63 98 11/14/20 03:36 98.5 F 99 16 139/71 96 Weight Weight 89 lb 15.178 oz I&O: 11/13/20 11/14/20 11/15/20 06:59 06:59 06:59 Intake Total 1223 1374 Output Total 2870 3256 575 Balance -527 -1276 -700 Result Diagrams: 11/13/20 06:16 11/13/20 06:16 Additional Labs: Accuchecks 11/14/20 11/13/20 10:41 17:43 POC Glucose 261 H 253 H Hospitalist ROS - Medication Medications: Active Medications Generic Name Dose Route Start Last Admin Trade Name Adamq PRN Reason Stop Dose Admin Aspirin 81 mg 11/11/20 09:00 11/14/20 09:21 Aspirin 81 Mg Enteric Coated Tablet PO 81 mg DAILY THERESA Administration Atorvastatin Calcium 40 mg 11/11/20 21:00 11/13/20 20:54 Atorvastatin Calcium 40 Mg Tab PO 40 mg HS THERESA Administration Cyanocobalamin 1,000 mcg 11/11/20 09:00 11/14/20 09:21 Cyanocobalamin (Vitamin B-12) 1,000 Mcg Tab PO 1,000 mcg DAILY THERESA Administration Ferrous Sulfate 325 mg 11/11/20 08:00 11/13/20 09:22 Ferrous Sulfate 325 Mg Tab PO 325 mg Q2D THERESA Administration Folic Acid 1 mg 11/11/20 09:00 11/14/20 09:21 Folic Acid 1 Mg Tab PO 1 mg DAILY THERESA Administration Cefepime HCl 2 gm/ Sodium 100 mls @ 200 mls/hr 11/10/20 23:59 11/14/20 11:33 Chloride IVPB 100 mls 1200,2359 THERESA Administration Insulin Human Lispro 0 units 11/10/20 22:17 11/14/20 11:34 Humalog 300 Units/3 Ml Vial SC 4 unit .MILD SLIDING SCALE PRN Administration Mild Correctional Scale Insulin Human Lispro 0 units 11/10/20 22:17 11/13/20 21:33 Humalog 300 Units/3 Ml Vial SC 4 unit .BEDTIME SLIDING SC PRN Administration Bedtime Correctional Scale Iron/Minerals/Multivitamins 1 tab 11/11/20 09:00 11/14/20 09:21 Multivitamin W/ Minerals 1 Tab PO 1 tab DAILY THERESA Administration Lisinopril 2.5 mg 11/11/20 09:00 11/14/20 09:21 Lisinopril 2.5 Mg Tab PO 2.5 mg DAILY THERESA Administration Metformin HCl 850 mg 11/14/20 08:00 11/14/20 09:21 Metformin 850 Mg Tab PO 850 mg BID-WM THERESA Administration Sodium Chloride 10 ml 11/14/20 09:00 11/14/20 09:21 Flush - Normal Saline 10 Ml Syringe IVF 10 ml Q12HR THERESA Administration - Exam General Appearance: awake alert Eye: PERRL, anicteric sclera ENT: no oropharyngeal lesions, moist mucosa Neck: supple, no JVD Heart: RRR, no murmur Respiratory: no wheezes, no rales Gastrointestinal: soft, non-tender, non-distended, normal bowel sounds Extremities - other findings: right forefoot in dressing, left aka Neurological: cranial nerve grossly intact, no focal deficits Hosp A/P (1) Dry gangrene Code(s): I96 - GANGRENE, NOT ELSEWHERE CLASSIFIED Status: Acute (2) Intellectual disability Code(s): F79 - UNSPECIFIED INTELLECTUAL DISABILITIES Status: Chronic (3) History of left above knee amputation Code(s): Z89.612 - ACQUIRED ABSENCE OF LEFT LEG ABOVE KNEE Status: Chronic (4) DM2 (diabetes mellitus, type 2) Status: Chronic Qualifiers: Diabetes mellitus usp insulin use: without usp use Diabetes mellitus complication status: with circulatory complication Diabetes mellitus complication detail: with peripheral angiopathy with gangrene Qualified Code(s): E11.52 - Type 2 diabetes mellitus with diabetic peripheral angiopathy with gangrene (5) HTN (hypertension) Code(s): I10 - ESSENTIAL (PRIMARY) HYPERTENSION Status: Chronic Qualifiers: Hypertension type: essential hypertension Qualified Code(s): I10 - Essential (primary) hypertension (6) Peripheral arterial occlusive disease Code(s): I77.9 - DISORDER OF ARTERIES AND ARTERIOLES, UNSPECIFIED Status: Chronic - Plan wound care, surgical options per adv. CM has traced 's cell number and family friend who speaks malaysian as well. may need placement is on cefepime and vanc, asp, lipitor, oral iron hemostable
[2020-11-14] MEDS: Vancomycin HCl 750 MG in Sodium Chloride 0.9% 250 ML 250 ML IVPB SCH (20:33)
[2020-11-14] MEDS: Atorvastatin Calcium 40 MG TAB PO SCH (20:33)
[2020-11-15] MEDS: Cefepime 2 GM in Sodium Chloride 0.9% 100 ML IVPB SCH ×2 (00:02→12:13)
[2020-11-15] MEDS: HumaLOG 300 UNITS/3 ML VIAL SC PRN ×3 (06:18→16:46)
[2020-11-15] MEDS: Cyanocobalamin (Vitamin B-12) 1,000 MCG TAB PO SCH (09:54)
[2020-11-15] MEDS: metFORMIN 850 MG TAB PO SCH ×2 (09:54→16:46)
[2020-11-15] MEDS: Ferrous Sulfate 325 MG TAB PO SCH (09:54)
[2020-11-15] MEDS: Lisinopril 2.5 MG TAB PO SCH (09:54)
[2020-11-15] MEDS: Vancomycin HCl 750 MG in Sodium Chloride 0.9% 250 ML 250 ML IVPB SCH ×2 (09:55→20:52)
[2020-11-15] MEDS: Multivitamin W/ Minerals 1 TAB PO SCH (09:55)
[2020-11-15] MEDS: Folic Acid 1 MG TAB PO SCH (09:55)
[2020-11-15] MEDS: Aspirin 81 mg Enteric Coated Tablet PO SCH (11:12)
--- NOTE | 2020-11-15 13:13 | PDOC.HOSPP ---
- Subjective Encounter Date: 11/15/20 Encounter Time: 12:45 Subjective: no new complaints, feels better no pain in her leg - Objective Vital Signs & Weight: Vital Signs (12 hours) Temp Pulse Resp BP Pulse Ox 11/15/20 09:54 96 11/15/20 08:00 98.9 F 96 20 129/60 98 11/15/20 04:03 99.6 F 88 18 133/64 97 Weight Admit Weight 89 lb 15.168 oz Weight 89 lb 15.168 oz I&O: 11/14/20 11/15/20 11/16/20 06:59 06:59 06:59 Intake Total 1374 1505 Output Total 2650 4430 Balance -2313 -7288 Result Diagrams: 11/13/20 06:16 11/13/20 06:16 Additional Labs: Accuchecks 11/15/20 11/15/20 11/14/20 10:42 06:07 20:40 POC Glucose 275 H 180 H 223 H 11/14/20 16:36 POC Glucose 166 H Hospitalist ROS - Medication Medications: Active Medications Generic Name Dose Route Start Last Admin Trade Name Shantel PRN Reason Stop Dose Admin Aspirin 81 mg 11/11/20 09:00 11/15/20 11:12 Aspirin 81 Mg Enteric Coated Tablet PO Not Given DAILY THERESA Atorvastatin Calcium 40 mg 11/11/20 21:00 11/14/20 20:33 Atorvastatin Calcium 40 Mg Tab PO 40 mg HS THERESA Administration Cyanocobalamin 1,000 mcg 11/11/20 09:00 11/15/20 09:54 Cyanocobalamin (Vitamin B-12) 1,000 Mcg Tab PO 1,000 mcg DAILY THERESA Administration Ferrous Sulfate 325 mg 11/11/20 08:00 11/15/20 09:54 Ferrous Sulfate 325 Mg Tab PO 325 mg Q2D THERESA Administration Folic Acid 1 mg 11/11/20 09:00 11/15/20 09:55 Folic Acid 1 Mg Tab PO 1 mg DAILY THERESA Administration Cefepime HCl 2 gm/ Sodium 100 mls @ 200 mls/hr 11/10/20 23:59 11/15/20 12:13 Chloride IVPB 100 mls 1200,2359 THERESA Administration Vancomycin HCl 750 mg/ Sodium 250 mls @ 250 mls/hr 11/14/20 21:00 11/15/20 09:55 Chloride IVPB 250 mls Q12HR THERESA Administration Insulin Human Lispro 0 units 11/10/20 22:17 11/15/20 11:12 Humalog 300 Units/3 Ml Vial SC 4 unit .MILD SLIDING SCALE PRN Administration Mild Correctional Scale Insulin Human Lispro 0 units 11/10/20 22:17 11/14/20 20:41 Humalog 300 Units/3 Ml Vial SC 2 unit .BEDTIME SLIDING SC PRN Administration Bedtime Correctional Scale Iron/Minerals/Multivitamins 1 tab 11/11/20 09:00 11/15/20 09:55 Multivitamin W/ Minerals 1 Tab PO 1 tab DAILY THERESA Administration Lisinopril 2.5 mg 11/11/20 09:00 11/15/20 09:54 Lisinopril 2.5 Mg Tab PO 2.5 mg DAILY THERESA Administration Metformin HCl 850 mg 11/14/20 08:00 11/15/20 09:54 Metformin 850 Mg Tab PO 850 mg BID-WM THERESA Administration Sodium Chloride 10 ml 11/14/20 09:00 11/15/20 09:55 Flush - Normal Saline 10 Ml Syringe IVF 10 ml Q12HR THERESA Administration - Exam General Appearance: awake alert Eye: PERRL, anicteric sclera ENT: no oropharyngeal lesions, moist mucosa Neck: supple, no JVD Heart: RRR, no murmur Respiratory: no wheezes, no rales Gastrointestinal: soft, non-tender, non-distended, normal bowel sounds Extremities - other findings: right forefoot in dressing Neurological: cranial nerve grossly intact Neurological - other findings: left hemiparesis, left aka Hosp A/P (1) Dry gangrene Code(s): I96 - GANGRENE, NOT ELSEWHERE CLASSIFIED Status: Acute (2) Intellectual disability Code(s): F79 - UNSPECIFIED INTELLECTUAL DISABILITIES Status: Chronic (3) History of left above knee amputation Code(s): Z89.612 - ACQUIRED ABSENCE OF LEFT LEG ABOVE KNEE Status: Chronic (4) DM2 (diabetes mellitus, type 2) Status: Chronic Qualifiers: Diabetes mellitus retirement insulin use: without moth exterminator use Diabetes mellitus complication status: with circulatory complication Diabetes mellitus complication detail: with peripheral angiopathy with gangrene Qualified Code(s): E11.52 - Type 2 diabetes mellitus with diabetic peripheral angiopathy with gangrene (5) HTN (hypertension) Code(s): I10 - ESSENTIAL (PRIMARY) HYPERTENSION Status: Chronic Qualifiers: Hypertension type: essential hypertension Qualified Code(s): I10 - Essential (primary) hypertension (6) Peripheral arterial occlusive disease Code(s): I77.9 - DISORDER OF ARTERIES AND ARTERIOLES, UNSPECIFIED Status: Chronic - Plan wound care, surgical options per adv. CM has traced 's cell number and family friend who speaks amharic as well. may need placement is on cefepime and vanc, asp, lipitor, oral iron hemostable no new changes from yesterday
[2020-11-15] MEDS: Atorvastatin Calcium 40 MG TAB PO SCH (20:52)
[2020-11-16] MEDS: Cefepime 2 GM in Sodium Chloride 0.9% 100 ML IVPB SCH ×2 (00:19→13:33)
[2020-11-16 09:15] LABS: Vancomycin, Trough 17.4 ug/mL
[2020-11-16] MEDS: Aspirin 81 mg Enteric Coated Tablet PO SCH (09:28)
[2020-11-16] MEDS: Multivitamin W/ Minerals 1 TAB PO SCH (09:28)
[2020-11-16] MEDS: Lisinopril 2.5 MG TAB PO SCH (09:28)
[2020-11-16] MEDS: Folic Acid 1 MG TAB PO SCH (09:28)
[2020-11-16] MEDS: Vancomycin HCl 750 MG in Sodium Chloride 0.9% 250 ML 250 ML IVPB SCH ×2 (09:29→21:07)
[2020-11-16] MEDS: Cyanocobalamin (Vitamin B-12) 1,000 MCG TAB PO SCH (09:29)
[2020-11-16] MEDS: metFORMIN 850 MG TAB PO SCH ×2 (09:29→17:26)
[2020-11-16] MEDS: HumaLOG 300 UNITS/3 ML VIAL SC PRN (11:20)
--- NOTE | 2020-11-16 14:09 | PDOC.HOSPP ---
- Subjective Encounter Date: 11/16/20 Encounter Time: 12:45 Subjective: no pain, feels better eating well - Objective Vital Signs & Weight: Vital Signs (12 hours) Temp Pulse Resp BP Pulse Ox 11/16/20 11:48 99.2 F 96 20 165/75 H 98 11/16/20 09:28 97 11/16/20 08:00 98.4 F 97 20 133/69 97 Weight Admit Weight 89 lb 15.168 oz Weight 89 lb 15.168 oz I&O: 11/15/20 11/16/20 11/17/20 06:59 06:59 06:59 Intake Total 1505 Output Total 4490 1900 Balance -1445 -1900 Result Diagrams: 11/13/20 06:16 11/13/20 06:16 Additional Labs: Accuchecks 11/16/20 11/16/20 11/15/20 10:59 05:57 20:59 POC Glucose 206 H 131 H 140 H 11/15/20 11/14/20 11/13/20 16:35 06:22 21:29 POC Glucose 184 H 208 H 341 H Hospitalist ROS - Medication Medications: Active Medications Generic Name Dose Route Start Last Admin Trade Name Freq PRN Reason Stop Dose Admin Aspirin 81 mg 11/11/20 09:00 11/16/20 09:28 Aspirin 81 Mg Enteric Coated Tablet PO 81 mg DAILY THERESA Administration Atorvastatin Calcium 40 mg 11/11/20 21:00 11/15/20 20:52 Atorvastatin Calcium 40 Mg Tab PO 40 mg HS THERESA Administration Cyanocobalamin 1,000 mcg 11/11/20 09:00 11/16/20 09:29 Cyanocobalamin (Vitamin B-12) 1,000 Mcg Tab PO 1,000 mcg DAILY THERESA Administration Ferrous Sulfate 325 mg 11/11/20 08:00 11/15/20 09:54 Ferrous Sulfate 325 Mg Tab PO 325 mg Q2D THERESA Administration Folic Acid 1 mg 11/11/20 09:00 11/16/20 09:28 Folic Acid 1 Mg Tab PO 1 mg DAILY THERESA Administration Cefepime HCl 2 gm/ Sodium 100 mls @ 200 mls/hr 11/10/20 23:59 11/16/20 13:33 Chloride IVPB 100 mls 1200,2359 THERESA Administration Vancomycin HCl 750 mg/ Sodium 250 mls @ 250 mls/hr 11/14/20 21:00 11/16/20 09:29 Chloride IVPB 250 mls Q12HR THERESA Administration Insulin Human Lispro 0 units 11/10/20 22:17 11/16/20 11:20 Humalog 300 Units/3 Ml Vial SC 3 unit .MILD SLIDING SCALE PRN Administration Mild Correctional Scale Insulin Human Lispro 0 units 11/10/20 22:17 11/14/20 20:41 Humalog 300 Units/3 Ml Vial SC 2 unit .BEDTIME SLIDING SC PRN Administration Bedtime Correctional Scale Iron/Minerals/Multivitamins 1 tab 11/11/20 09:00 11/16/20 09:28 Multivitamin W/ Minerals 1 Tab PO 1 tab DAILY THERESA Administration Lisinopril 2.5 mg 11/11/20 09:00 11/16/20 09:28 Lisinopril 2.5 Mg Tab PO 2.5 mg DAILY THERESA Administration Metformin HCl 850 mg 11/14/20 08:00 11/16/20 09:29 Metformin 850 Mg Tab PO 850 mg BID-WM THERESA Administration Sodium Chloride 10 ml 11/14/20 09:00 11/16/20 09:26 Flush - Normal Saline 10 Ml Syringe IVF Not Given Q12HR THERESA - Exam General Appearance: awake alert Eye: PERRL, anicteric sclera ENT: no oropharyngeal lesions, moist mucosa Neck: supple, no JVD Heart: RRR, no murmur Respiratory: no wheezes, no rales Gastrointestinal: soft, non-tender, non-distended, normal bowel sounds Extremities - other findings: right foot in dressing Neurological: cranial nerve grossly intact Neurological - other findings: left hemiparesis, left aka Hosp A/P (1) Dry gangrene Code(s): I96 - GANGRENE, NOT ELSEWHERE CLASSIFIED Status: Acute (2) Intellectual disability Code(s): F79 - UNSPECIFIED INTELLECTUAL DISABILITIES Status: Chronic (3) History of left above knee amputation Code(s): Z89.612 - ACQUIRED ABSENCE OF LEFT LEG ABOVE KNEE Status: Chronic (4) DM2 (diabetes mellitus, type 2) Status: Chronic Qualifiers: Diabetes mellitus halfway insulin use: without terminal block assembler use Diabetes mellitus complication status: with circulatory complication Diabetes mellitus complication detail: with peripheral angiopathy with gangrene Qualified Code(s): E11.52 - Type 2 diabetes mellitus with diabetic peripheral angiopathy with gangrene (5) HTN (hypertension) Code(s): I10 - ESSENTIAL (PRIMARY) HYPERTENSION Status: Chronic Qualifiers: Hypertension type: essential hypertension Qualified Code(s): I10 - Essential (primary) hypertension (6) Peripheral arterial occlusive disease Code(s): I77.9 - DISORDER OF ARTERIES AND ARTERIOLES, UNSPECIFIED Status: Chronic - Plan wound care, surgical options per adv. CM has traced 's cell number and family friend who speaks monegasque as well. may need placement or home with wound care and HH with nursing, await surgery advice. is on cefepime and vanc, asp, lipitor, oral iron hemostable will switch to augmentin for dc plan
[2020-11-16] MEDS: Atorvastatin Calcium 40 MG TAB PO SCH (21:07)
[2020-11-17 06:38] LABS: #Basophils 0.1 thou/uL (0.0-0.2); #Eosinphils 0.2 thou/uL (0.0-0.7); #Lymphocytes 1.9 thou/uL (1.20-3.40); %Basophils 0.6 % (0.0-1.0); %Eosinophils 1.1 % (0.0-10.0); %Lymphocytes 13.5 % (21.0-51.0); %Neutrophils 77.7 % (42.0-75.0); Hemoglobin 9.2 g/dL (12.0-16.0); Mean Corpuscular HGB CONC 33.1 g/dL (32.0-36.0); Mean Corpuscular Hemoglobin 27.1 pg (27.0-31.0); Mean Corpuscular Volume 81.9 fL (78.0-98.0); Mean Platelet Volume 7.4 fL (7.4-10.4); Platelet Count 435 thou/uL (130-400); RBC Distribution Width 11.8 % (11.5-14.5); Red Blood Cell (RBC) Count 3.38 mill/uL (4.20-5.40); White Blood Cell (WBC) Count 14.1 thou/uL (4.8-10.8)
[2020-11-17] MEDS: Aspirin 81 mg Enteric Coated Tablet PO SCH (08:26)
[2020-11-17] MEDS: Lisinopril 2.5 MG TAB PO SCH (08:26)
[2020-11-17] MEDS: Folic Acid 1 MG TAB PO SCH (08:26)
[2020-11-17] MEDS: Multivitamin W/ Minerals 1 TAB PO SCH (08:26)
[2020-11-17] MEDS: Cyanocobalamin (Vitamin B-12) 1,000 MCG TAB PO SCH (08:26)
[2020-11-17] MEDS: Ferrous Sulfate 325 MG TAB PO SCH (08:27)
[2020-11-17] MEDS: metFORMIN 850 MG TAB PO SCH ×2 (08:34→16:14)
[2020-11-17] MEDS: Vancomycin HCl 750 MG in Sodium Chloride 0.9% 250 ML 250 ML IVPB SCH ×2 (08:35→21:17)
--- NOTE | 2020-11-17 09:02 | PRG ---
DATE OF SERVICE: 11/17/2020 SUBJECTIVE: Ms. Hagen remains in her bed on the pediatric floor. She is hospital day #7 following admission for a gangrenous right third toe. When I saw her in consultation four days ago, I had recommended Betadine dressing changes to the toe to see if it is stabilized. On examination this morning, it clearly has not. Palpation of the gangrenous tissue in the base of the toe still elicits purulent drainage. She has no discomfort or symptoms at that site. OBJECTIVE: VITAL SIGNS: On examination, she is afebrile. Her pulse is between 85 and 104. Blood pressure is within normal limits. EXTREMITIES: Examination of the right toe reveals a Betadine dressing was intact over the toe. The entire distal toe is consumed with dry gangrene. There is some erythema on the distal foot at the base of that toe. Again, pressure on that area elicits purulent material. LABORATORY DATA: Her white blood cell count is up to 14, hemoglobin is 9.2. ASSESSMENT: The patient with a right third toe with dry gangrene, but an area of infection and suspected wet gangrene proximally. This is not going to get better with wound care apparently. I therefore recommend proceeding with toe amputation. As outlined in my consultation earlier, this puts her at substantial risk for more proximal amputations as these wounds fail to heal. She has the same diabetic vasculopathy on the right that she had on the left that led to her above-knee amputation. I explained to the patient that more proximal amputations certainly possible, but at this point, there are no real options as far as what to do to manage the toe. Job ID: [id number]
[2020-11-17] MEDS: HumaLOG 300 UNITS/3 ML VIAL SC PRN ×2 (11:36→17:15)
[2020-11-17] MEDS: Cefepime 2 GM in Sodium Chloride 0.9% 100 ML IVPB SCH ×2 (11:36)
--- NOTE | 2020-11-17 14:18 | PDOC.HOSPP ---
- Subjective Encounter Date: 11/17/20 Encounter Time: 11:00 Subjective: feels better, no pain in her right foot - Objective Vital Signs & Weight: Vital Signs (12 hours) Temp Pulse Resp BP Pulse Ox 11/17/20 12:06 98.7 F 89 20 127/60 100 11/17/20 08:26 85 11/17/20 07:55 98.8 F 85 20 128/68 95 Weight Admit Weight 89 lb 15.168 oz Weight 89 lb 15.168 oz I&O: 11/16/20 11/17/20 11/18/20 06:59 06:59 06:59 Intake Total 3350 Output Total 1900 3050 Balance -1900 300 Result Diagrams: 11/17/20 06:25 11/13/20 06:16 Additional Labs: Accuchecks 11/17/20 11/17/20 11/16/20 11:00 06:04 20:38 POC Glucose 198 H 147 H 185 H 11/16/20 17:12 POC Glucose 140 H Hospitalist ROS - Medication Medications: Active Medications Generic Name Dose Route Start Last Admin Trade Name Freq PRN Reason Stop Dose Admin Aspirin 81 mg 11/11/20 09:00 11/17/20 08:26 Aspirin 81 Mg Enteric Coated Tablet PO 81 mg DAILY THERESA Administration Atorvastatin Calcium 40 mg 11/11/20 21:00 11/16/20 21:07 Atorvastatin Calcium 40 Mg Tab PO 40 mg HS THERESA Administration Cyanocobalamin 1,000 mcg 11/11/20 09:00 11/17/20 08:26 Cyanocobalamin (Vitamin B-12) 1,000 Mcg Tab PO 1,000 mcg DAILY THERESA Administration Ferrous Sulfate 325 mg 11/11/20 08:00 11/17/20 08:27 Ferrous Sulfate 325 Mg Tab PO 325 mg Q2D THERESA Administration Folic Acid 1 mg 11/11/20 09:00 11/17/20 08:26 Folic Acid 1 Mg Tab PO 1 mg DAILY THERESA Administration Cefepime HCl 2 gm/ Sodium 100 mls @ 200 mls/hr 11/10/20 23:59 11/17/20 11:36 Chloride IVPB 100 mls 1200,2359 THERESA Administration Vancomycin HCl 750 mg/ Sodium 250 mls @ 250 mls/hr 11/14/20 21:00 11/17/20 08:35 Chloride IVPB 250 mls Q12HR THERESA Administration Insulin Human Lispro 0 units 11/10/20 22:17 11/17/20 11:36 Humalog 300 Units/3 Ml Vial SC 2 unit .MILD SLIDING SCALE PRN Administration Mild Correctional Scale Insulin Human Lispro 0 units 11/10/20 22:17 11/14/20 20:41 Humalog 300 Units/3 Ml Vial SC 2 unit .BEDTIME SLIDING SC PRN Administration Bedtime Correctional Scale Iron/Minerals/Multivitamins 1 tab 11/11/20 09:00 11/17/20 08:26 Multivitamin W/ Minerals 1 Tab PO 1 tab DAILY THERESA Administration Lisinopril 2.5 mg 11/11/20 09:00 11/17/20 08:26 Lisinopril 2.5 Mg Tab PO 2.5 mg DAILY THERESA Administration Metformin HCl 850 mg 11/14/20 08:00 11/17/20 08:34 Metformin 850 Mg Tab PO 850 mg BID-WM THERESA Administration Sodium Chloride 10 ml 11/14/20 09:00 11/17/20 08:27 Flush - Normal Saline 10 Ml Syringe IVF Not Given Q12HR THERESA - Exam General Appearance: awake alert Eye: PERRL, anicteric sclera ENT: no oropharyngeal lesions, moist mucosa Neck: supple, no JVD Heart: RRR, no murmur Respiratory: no wheezes, no rales Gastrointestinal: soft, non-tender, non-distended, normal bowel sounds Extremities - other findings: right foot in dressing Neurological: cranial nerve grossly intact Neurological - other findings: left hemiparesis Hosp A/P (1) Dry gangrene Code(s): I96 - GANGRENE, NOT ELSEWHERE CLASSIFIED Status: Acute (2) Intellectual disability Code(s): F79 - UNSPECIFIED INTELLECTUAL DISABILITIES Status: Chronic (3) History of left above knee amputation Code(s): Z89.612 - ACQUIRED ABSENCE OF LEFT LEG ABOVE KNEE Status: Chronic (4) DM2 (diabetes mellitus, type 2) Status: Chronic 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 shelter use Diabetes mellitus complication status: with circulatory complication Diabetes mellitus complication detail: with peripheral angiopathy with gangrene Qualified Code(s): E11.52 - Type 2 diabetes mellitus with diabetic peripheral angiopathy with gangrene (5) HTN (hypertension) Code(s): I10 - ESSENTIAL (PRIMARY) HYPERTENSION Status: Chronic Qualifiers: Hypertension type: essential hypertension Qualified Code(s): I10 - Essential (primary) hypertension (6) Peripheral arterial occlusive disease Code(s): I77.9 - DISORDER OF ARTERIES AND ARTERIOLES, UNSPECIFIED Status: Chronic - Plan wound care, for toe amputation in am with additional procedures if needed based on circulation. CM has traced 's cell number and family friend who speaks niuean as well. may need placement or home with wound care and HH with nursing. is on cefepime and vanc, asp, lipitor, oral iron hemostable will switch to augmentin for dc plan
[2020-11-17] MEDS: Atorvastatin Calcium 40 MG TAB PO SCH (21:17)
[2020-11-18] MEDS: Cefepime 2 GM in Sodium Chloride 0.9% 100 ML IVPB SCH ×3 (00:30→17:20)
[2020-11-18 07:49] LABS: #Basophils 0.1 thou/uL (0.0-0.2); #Eosinphils 0.2 thou/uL (0.0-0.7); #Lymphocytes 1.7 thou/uL (1.20-3.40); #Neutrophils 9.6 thou/uL (1.40-6.50); %Basophils 0.7 % (0.0-1.0); %Eosinophils 1.5 % (0.0-10.0); %Lymphocytes 13.1 % (21.0-51.0); %Monocytes 7.8 % (0.0-10.0); %Neutrophils 76.9 % (42.0-75.0); Hemoglobin 9.1 g/dL (12.0-16.0); Mean Corpuscular HGB CONC 33.9 g/dL (32.0-36.0); Mean Corpuscular Hemoglobin 27.9 pg (27.0-31.0); Mean Corpuscular Volume 82.4 fL (78.0-98.0); Mean Platelet Volume 7.4 fL (7.4-10.4); Platelet Count 408 thou/uL (130-400); RBC Distribution Width 11.8 % (11.5-14.5); Red Blood Cell (RBC) Count 3.27 mill/uL (4.20-5.40); White Blood Cell (WBC) Count 12.5 thou/uL (4.8-10.8)
[2020-11-18 08:11] LABS: Anion Gap 11 mmol/L (10-20); BUN (Urea Nitrogen) 13 mg/dL (9.8-20.1); Calc. Creatinine Clearance 50 mL/min (70-130); Calcium 9.1 mg/dL (7.8-10.44); Carbon Dioxide 29 mmol/L (23-31); Chloride 102 mmol/L (98-107); Glucose 144 mg/dL (80-115); Potassium 3.9 mmol/L (3.5-5.1); Sodium 138 mmol/L (136-145)
[2020-11-18] MEDS: metFORMIN 850 MG TAB PO SCH ×2 (10:06→17:20)
[2020-11-18] MEDS: Lisinopril 2.5 MG TAB PO SCH (10:13)
[2020-11-18] MEDS: Vancomycin HCl 750 MG in Sodium Chloride 0.9% 250 ML 250 ML IVPB SCH ×2 (10:13→21:11)
[2020-11-18] MEDS: Aspirin 81 mg Enteric Coated Tablet PO SCH (10:13)
[2020-11-18] MEDS: Cyanocobalamin (Vitamin B-12) 1,000 MCG TAB PO SCH (10:13)
[2020-11-18] MEDS: Multivitamin W/ Minerals 1 TAB PO SCH (10:13)
[2020-11-18] MEDS: Folic Acid 1 MG TAB PO SCH (10:13)
[2020-11-18] MEDS ORDERED: Fentanyl 100 MCG/2 ML VIAL ONE (12:06)
[2020-11-18] MEDS ORDERED: Lidocaine 1% w/Epinephrine 1:100K 20 ML VIAL ONE (12:19)
[2020-11-18] MEDS ORDERED: Bupivacaine 0.25% HCL 30 ML VIAL ONE (12:19)
[2020-11-18] MEDS ORDERED: Midazolam HCl 2 mg/2 ml Vial ONE (12:34)
[2020-11-18] MEDS ORDERED: PROPOFOL 200 MG/20 ML VIAL ONE (12:44)
[2020-11-18] MEDS ORDERED: Lidocaine 1% PF 5 ML VIAL ONE (12:44)
[2020-11-18] MEDS ORDERED: PHENYLEPHRINE-NS 100 MCG/ML 10 ML SYRINGE ONE (12:44)
--- NOTE | 2020-11-18 13:53 | PDOC.HOSPP ---
- Subjective Encounter Date: 11/18/20 Encounter Time: 11:00 Subjective: is npo for procedure today no pain, feels good - Objective Vital Signs & Weight: Vital Signs (12 hours) Temp Pulse Resp BP Pulse Ox 11/18/20 11:00 98.8 F 89 20 156/75 H 98 11/18/20 08:00 98.3 F 100 20 140/75 98 11/18/20 04:00 98.9 F 79 16 136/70 99 Weight Admit Weight 89 lb 15.168 oz Weight 89 lb 15.168 oz I&O: 11/17/20 11/18/20 11/19/20 06:59 06:59 06:59 Intake Total 3350 Output Total 3050 250 900 Balance 300 -250 -900 Result Diagrams: 11/18/20 07:33 11/18/20 07:33 Additional Labs: Accuchecks 11/18/20 11/18/20 11/17/20 10:57 05:17 20:37 POC Glucose 131 H 137 H 165 H 11/17/20 16:38 POC Glucose 187 H Hospitalist ROS - Medication Medications: Active Medications Generic Name Dose Route Start Last Admin Trade Name Adamq PRN Reason Stop Dose Admin Aspirin 81 mg 11/11/20 09:00 11/18/20 10:13 Aspirin 81 Mg Enteric Coated Tablet PO 81 mg DAILY THERESA Administration Atorvastatin Calcium 40 mg 11/11/20 21:00 11/17/20 21:17 Atorvastatin Calcium 40 Mg Tab PO 40 mg HS THERESA Administration Cyanocobalamin 1,000 mcg 11/11/20 09:00 11/18/20 10:13 Cyanocobalamin (Vitamin B-12) 1,000 Mcg Tab PO 1,000 mcg DAILY THERESA Administration Ferrous Sulfate 325 mg 11/11/20 08:00 11/17/20 08:27 Ferrous Sulfate 325 Mg Tab PO 325 mg Q2D THERESA Administration Folic Acid 1 mg 11/11/20 09:00 11/18/20 10:13 Folic Acid 1 Mg Tab PO 1 mg DAILY THERESA Administration Cefepime HCl 2 gm/ Sodium 100 mls @ 200 mls/hr 11/10/20 23:59 11/18/20 00:54 Chloride IVPB 100 mls 1200,2359 THERESA Administration Vancomycin HCl 750 mg/ Sodium 250 mls @ 250 mls/hr 11/14/20 21:00 11/18/20 10:13 Chloride IVPB 250 mls Q12HR THERESA Administration Insulin Human Lispro 0 units 11/10/20 22:17 11/17/20 17:15 Humalog 300 Units/3 Ml Vial SC 2 unit .MILD SLIDING SCALE PRN Administration Mild Correctional Scale Insulin Human Lispro 0 units 11/10/20 22:17 11/14/20 20:41 Humalog 300 Units/3 Ml Vial SC 2 unit .BEDTIME SLIDING SC PRN Administration Bedtime Correctional Scale Iron/Minerals/Multivitamins 1 tab 11/11/20 09:00 11/18/20 10:13 Multivitamin W/ Minerals 1 Tab PO 1 tab DAILY THERESA Administration Lisinopril 2.5 mg 11/11/20 09:00 11/18/20 10:13 Lisinopril 2.5 Mg Tab PO 2.5 mg DAILY THERESA Administration Metformin HCl 850 mg 11/14/20 08:00 11/18/20 10:06 Metformin 850 Mg Tab PO Not Given BID-WM THERESA Sodium Chloride 10 ml 11/14/20 09:00 11/18/20 10:14 Flush - Normal Saline 10 Ml Syringe IVF 10 ml Q12HR THERESA Administration - Exam General Appearance: awake alert Eye: PERRL, anicteric sclera ENT: no oropharyngeal lesions, moist mucosa Neck: supple, no JVD Heart: RRR, no murmur Respiratory: no wheezes, no rales Gastrointestinal: soft, non-tender, non-distended, normal bowel sounds Extremities - other findings: right foot in dressing Neurological: cranial nerve grossly intact Neurological - other findings: left hemiparesis Hosp A/P (1) Dry gangrene Code(s): I96 - GANGRENE, NOT ELSEWHERE CLASSIFIED Status: Acute (2) Intellectual disability Code(s): F79 - UNSPECIFIED INTELLECTUAL DISABILITIES Status: Chronic (3) History of left above knee amputation Code(s): Z89.612 - ACQUIRED ABSENCE OF LEFT LEG ABOVE KNEE Status: Chronic (4) DM2 (diabetes mellitus, type 2) Status: Chronic Qualifiers: Diabetes mellitus salvage determiner insulin use: without assisted use Diabetes mellitus complication status: with circulatory complication Diabetes mellitus complication detail: with peripheral angiopathy with gangrene Qualified Code(s): E11.52 - Type 2 diabetes mellitus with diabetic peripheral angiopathy with gangrene (5) HTN (hypertension) Code(s): I10 - ESSENTIAL (PRIMARY) HYPERTENSION Status: Chronic Qualifiers: Hypertension type: essential hypertension Qualified Code(s): I10 - Essential (primary) hypertension (6) Peripheral arterial occlusive disease Code(s): I77.9 - DISORDER OF ARTERIES AND ARTERIOLES, UNSPECIFIED Status: Chronic - Plan wound care, for toe amputation today with additional procedures if needed based on circulation. CM has traced 's cell number and family friend who speaks slovenian as well. may need placement or home with wound care and HH with nursing. is on cefepime and vanc, asp, lipitor, oral iron hemostable will switch to augmentin for dc plan
[2020-11-18] MEDS ORDERED: Promethazine HCl 25 MG/ML VIAL SLOW IVP PRN (13:58)
[2020-11-18] MEDS ORDERED: Ondansetron HCl/PF 4 MG/2 ML Vial IVP PRN (13:58)
[2020-11-18] MEDS ORDERED: Promethazine HCl 25 MG/ML VIAL IM PRN (13:58)
[2020-11-18] MEDS: Atorvastatin Calcium 40 MG TAB PO SCH (21:11)
[2020-11-19] MEDS: Acetaminophen 325 MG TAB PO PRN ×2 (02:26→09:06)
[2020-11-19] MEDS ORDERED: Cefepime 2 GM in Sodium Chloride 0.9% 100 ML IVPB SCH (05:00)
[2020-11-19] MEDS: HumaLOG 300 UNITS/3 ML VIAL SC PRN ×4 (06:14→21:52)
[2020-11-19 06:53] LABS: #Basophils 0.1 thou/uL (0.0-0.2); #Eosinphils 0.2 thou/uL (0.0-0.7); #Lymphocytes 1.5 thou/uL (1.20-3.40); #Monocytes 0.9 thou/uL (0.11-0.59); #Neutrophils 11.2 thou/uL (1.40-6.50); %Basophils 0.6 % (0.0-1.0); %Eosinophils 1.1 % (0.0-10.0); %Lymphocytes 10.9 % (21.0-51.0); %Monocytes 6.6 % (0.0-10.0); %Neutrophils 80.8 % (42.0-75.0); Mean Corpuscular HGB CONC 33.3 g/dL (32.0-36.0); Mean Corpuscular Hemoglobin 27.6 pg (27.0-31.0); Mean Corpuscular Volume 82.9 fL (78.0-98.0); Mean Platelet Volume 7.2 fL (7.4-10.4); Platelet Count 378 thou/uL (130-400); Red Blood Cell (RBC) Count 3.27 mill/uL (4.20-5.40); White Blood Cell (WBC) Count 13.8 thou/uL (4.8-10.8)
[2020-11-19 07:06] LABS: Anion Gap 12 mmol/L (10-20); BUN (Urea Nitrogen) 13 mg/dL (9.8-20.1); Calc. Creatinine Clearance 45 mL/min (70-130); Calcium 8.7 mg/dL (7.8-10.44); Carbon Dioxide 26 mmol/L (23-31); Chloride 100 mmol/L (98-107); Glucose 154 mg/dL (80-115); Potassium 4.3 mmol/L (3.5-5.1); Sodium 134 mmol/L (136-145)
[2020-11-19] MEDS: Folic Acid 1 MG TAB PO SCH (09:04)
[2020-11-19] MEDS: Vancomycin HCl 750 MG in Sodium Chloride 0.9% 250 ML 250 ML IVPB SCH (09:04)
[2020-11-19] MEDS: Lisinopril 2.5 MG TAB PO SCH (09:04)
[2020-11-19] MEDS: Aspirin 81 mg Enteric Coated Tablet PO SCH (09:04)
[2020-11-19] MEDS: Cyanocobalamin (Vitamin B-12) 1,000 MCG TAB PO SCH (09:04)
[2020-11-19] MEDS: Multivitamin W/ Minerals 1 TAB PO SCH (09:04)
[2020-11-19] MEDS: metFORMIN 850 MG TAB PO SCH ×2 (09:04→16:21)
[2020-11-19] MEDS: Ferrous Sulfate 325 MG TAB PO SCH (09:06)
--- NOTE | 2020-11-19 09:12 | PDOC.GSPN ---
Surgery Progress Note: Subj - Subjective Narrative: 65 y.o. female POD# 1 s/p amputation of the right 3rd toe. Due to the nature of her speech, she is difficulty to obtain history from. She did verbalize to me that she feels okay. She had pain overnight but none this morning. She has not has a BM since surgery. She is on a regular diet and seems to be tolerating it well. Good output from Hernández. Surgery Progress Note: Obj - Vital signs Vital signs: Vital Signs - Most Recent Temp Pulse Resp BP Pulse Ox 98.9 F 88 20 127/73 99 11/19/20 08:00 11/19/20 08:00 11/19/20 08:00 11/19/20 08:00 11/19/20 08:00 Afebrile: Tmax 99.3 Hypotensive @ 112/59 - Physical Exam General: no distress, no pain Cardiovascular: regular rate and rhythm, no murmur Respiratory: clear to auscultation Abdomen: soft, non tender, nondistended, positive bowel sounds Psychiatric: negative: speech is normal (Speech is mumbled and difficult to understand) Wound: dressing clean,dry,intact Surgery Progress Note: Results - Labs Result Diagrams: 11/19/20 06:38 11/19/20 06:38 Lab results: Laboratory Results - last 12 hr 11/19/20 11/19/20 11/19/20 06:05 06:38 06:38 WBC RBC Hgb Hct MCV MCH MCHC RDW Plt Count MPV Neutrophils % Lymphocytes % Monocytes % Eosinophils % Basophils % Neutrophils # Lymphocytes # Monocytes # Eosinophils # Basophils # Sodium 134 L Potassium 4.3 Chloride 100 Carbon Dioxide 26 Anion Gap 12 BUN 13 Creatinine 0.80 Estimated GFR (MDRD) 72 Glucose 154 H POC Glucose 160 H Calcium 8.7 Vancomycin Trough 23.0 11/19/20 06:38 WBC 13.8 H RBC 3.27 L Hgb 9.0 L Hct 27.1 L MCV 82.9 MCH 27.6 MCHC 33.3 RDW 12.0 Plt Count 378 MPV 7.2 L Neutrophils % 80.8 H Lymphocytes % 10.9 L Monocytes % 6.6 Eosinophils % 1.1 Basophils % 0.6 Neutrophils # 11.2 H Lymphocytes # 1.5 Monocytes # 0.9 H Eosinophils # 0.2 Basophils # 0.1 Sodium Potassium Chloride Carbon Dioxide Anion Gap BUN Creatinine Estimated GFR (MDRD) Glucose POC Glucose Calcium Vancomycin Trough Leukocytosis with left shift: 12.5 yday to 13.8 today, 81% PMNs Anemia: Hgb 9.1 yday to 9.0 today Hyponatremia: 138 to 134 Hyperglycemia Surgery Progress Note: A/P - Plan Plan: 65 y.o. female POD# 1 s/p amputation of the right 3rd toe. Patient is recovering well from surgery, and her disposition is not of someone who is ill or in pain. Her WBC trending higher is likely due to surgical stress. 1. Pain: continue analgesics prn 2. Anemia: continue to replace iron, folate and B12 3. Hyperglycemia: insulin SS and metformin as ordered 4. Consider switch to po abx for discharge, will need placement for wound care. As above. Will need daily wound care. Wound has extremely poor healing potential as there was essentially no blood flow to the point of amputation. OK to DC tomorrow. I will need to see her back in my office next week. Jennie Diallo
--- NOTE | 2020-11-19 13:48 | PDOC.HOSPP ---
- Subjective Encounter Date: 11/19/20 Encounter Time: 12:15 Subjective: no pain now, had dressing changes and placement of wound vac this am - Objective Vital Signs & Weight: Vital Signs (12 hours) Temp Pulse Resp BP BP Pulse Ox 11/19/20 12:00 97.8 F 99 18 158/74 H 95 11/19/20 08:00 98.9 F 88 20 127/73 99 11/19/20 04:40 98 F 86 16 112/59 L 95 Weight Admit Weight 89 lb 15.168 oz Weight 89 lb 15.168 oz I&O: 11/18/20 11/19/20 11/20/20 06:59 06:59 06:59 Intake Total 1885 Output Total 250 2950 Balance -250 -1065 Result Diagrams: 11/19/20 06:38 11/19/20 06:38 Additional Labs: Accuchecks 11/19/20 11/18/20 11/18/20 06:05 20:37 16:54 POC Glucose 160 H 195 H 94 Hospitalist ROS - Medication Medications: Active Medications Generic Name Dose Route Start Last Admin Trade Name Freq PRN Reason Stop Dose Admin Acetaminophen 650 mg 11/10/20 22:17 11/19/20 09:06 Acetaminophen 325 Mg Tab PO 650 mg Q4H PRN Administration Headache/Fever/Mild Pain (1-3) Aspirin 81 mg 11/11/20 09:00 11/19/20 09:04 Aspirin 81 Mg Enteric Coated Tablet PO 81 mg DAILY THERESA Administration Atorvastatin Calcium 40 mg 11/11/20 21:00 11/18/20 21:11 Atorvastatin Calcium 40 Mg Tab PO 40 mg HS THERESA Administration Cyanocobalamin 1,000 mcg 11/11/20 09:00 11/19/20 09:04 Cyanocobalamin (Vitamin B-12) 1,000 Mcg Tab PO 1,000 mcg DAILY THERESA Administration Ferrous Sulfate 325 mg 11/11/20 08:00 11/19/20 09:06 Ferrous Sulfate 325 Mg Tab PO 325 mg Q2D THERESA Administration Folic Acid 1 mg 11/11/20 09:00 11/19/20 09:04 Folic Acid 1 Mg Tab PO 1 mg DAILY THERESA Administration Cefepime HCl 2 gm/ Sodium 100 mls @ 200 mls/hr 11/19/20 05:00 11/19/20 04:54 Chloride IVPB 100 mls 0500,1700 THERESA Administration Insulin Human Lispro 0 units 11/10/20 22:17 11/19/20 12:29 Humalog 300 Units/3 Ml Vial SC 3 unit .MILD SLIDING SCALE PRN Administration Mild Correctional Scale Insulin Human Lispro 0 units 11/10/20 22:17 11/14/20 20:41 Humalog 300 Units/3 Ml Vial SC 2 unit .BEDTIME SLIDING SC PRN Administration Bedtime Correctional Scale Iron/Minerals/Multivitamins 1 tab 11/11/20 09:00 11/19/20 09:04 Multivitamin W/ Minerals 1 Tab PO 1 tab DAILY THERESA Administration Lisinopril 2.5 mg 11/11/20 09:00 11/19/20 09:04 Lisinopril 2.5 Mg Tab PO 2.5 mg DAILY THERESA Administration Metformin HCl 850 mg 11/14/20 08:00 11/19/20 09:04 Metformin 850 Mg Tab PO 850 mg BID-WM THERESA Administration Sodium Chloride 10 ml 11/14/20 09:00 11/19/20 09:05 Flush - Normal Saline 10 Ml Syringe IVF Not Given Q12HR THERESA - Exam General Appearance: awake alert Eye: PERRL, anicteric sclera ENT: no oropharyngeal lesions, moist mucosa Neck: supple, no JVD Heart: RRR, no murmur Respiratory: no wheezes, no rales Gastrointestinal: soft, non-tender, non-distended, normal bowel sounds Extremities: no edema Extremities - other findings: right 2nd toe area in wound vac, left aka Neurological: cranial nerve grossly intact Neurological - other findings: left hemiparesis Hosp A/P (1) Dry gangrene Code(s): I96 - GANGRENE, NOT ELSEWHERE CLASSIFIED Status: Acute (2) Intellectual disability Code(s): F79 - UNSPECIFIED INTELLECTUAL DISABILITIES Status: Chronic (3) History of left above knee amputation Code(s): Z89.612 - ACQUIRED ABSENCE OF LEFT LEG ABOVE KNEE Status: Chronic (4) DM2 (diabetes mellitus, type 2) Status: Chronic Qualifiers: Diabetes mellitus fci insulin use: without fci use Diabetes mellitus complication status: with circulatory complication Diabetes mellitus complication detail: with peripheral angiopathy with gangrene Qualified Code(s): E11.52 - Type 2 diabetes mellitus with diabetic peripheral angiopathy with gangrene (5) HTN (hypertension) Code(s): I10 - ESSENTIAL (PRIMARY) HYPERTENSION Status: Chronic Qualifiers: Hypertension type: essential hypertension Qualified Code(s): I10 - Essential (primary) hypertension (6) Peripheral arterial occlusive disease Code(s): I77.9 - DISORDER OF ARTERIES AND ARTERIOLES, UNSPECIFIED Status: Chronic - Plan wound care/vac, s/p 2nd right toe amputation 11/18 d/w and patient, plan is for home with HH, PT and wound care, wound vac. Patient and prefer going home. augmentin, asp, lipitor, oral iron hemostable dc plan in am if wound vac and HH wound care are arranged, d/w Cm, surgery has cleared her for dc.
[2020-11-19 14:22] VITALS: BMI 17.5
[2020-11-19] MEDS ORDERED: Vancomycin HCl 500 MG in Sodium Chloride 0.9% 100 ML IVPB SCH (21:00)
[2020-11-19] MEDS: Amoxicillin/Potassium Clav 500 MG TAB PO SCH (21:53)
[2020-11-19] MEDS: Atorvastatin Calcium 40 MG TAB PO SCH (21:53)
[2020-11-20] MEDS: Cyanocobalamin (Vitamin B-12) 1,000 MCG TAB PO SCH (08:08)
[2020-11-20] MEDS: Folic Acid 1 MG TAB PO SCH (08:09)
[2020-11-20] MEDS: Multivitamin W/ Minerals 1 TAB PO SCH (08:09)
[2020-11-20] MEDS: metFORMIN 850 MG TAB PO SCH ×2 (08:09→17:27)
[2020-11-20] MEDS: Aspirin 81 mg Enteric Coated Tablet PO SCH (08:09)
[2020-11-20] MEDS: Lisinopril 2.5 MG TAB PO SCH (08:09)
--- NOTE | 2020-11-20 08:47 | OP ---
DATE OF PROCEDURE: 11/18/2020 PREOPERATIVE DIAGNOSIS: Right second toe wet and dry gangrene, severe peripheral arterial disease. POSTOPERATIVE DIAGNOSIS: Right second toe wet and dry gangrene, severe peripheral arterial disease. OPERATION PERFORMED: Ray amputation of right second toe. ANESTHESIA: General with laryngeal mask airway with additional local anesthetic using 0.25% Marcaine with epinephrine. INDICATIONS FOR PROCEDURE: The patient is a 65-year-old female. She has a history of a left above-knee amputation several years ago. She presents at this time with obvious dry gangrene of the right second toe. Unfortunately, there is a proximal infection with purulent drainage that has persisted in spite of Betadine dressing, intravenous antibiotics. This is leading to cellulitis and infection of the base of the toe or foot. I, therefore, recommend right second toe amputation. I explained to both the patient and her that since she appears to have peripheral arterial there is a very real chance that this toe amputation may not heal and will require a higher level amputation, possibly up to above-knee amputation on the right. DESCRIPTION OF OPERATION: Informed consent was obtained. The patient was taken to the operating room, where general anesthesia was obtained with the patient in the supine position. Right foot was prepped with ChloraPrep and draped in sterile fashion. Local anesthetic was infiltrated proximally using 0.25% Marcaine with epinephrine. An elliptical incision was created at the base of the second toe. Dissection was carried down to the proximal phalanx and then carried down to the MTP joint. The toe was disarticulated at this level, and passed off the field. The head of the underlying metatarsal bone debrided back with rongeur. The surrounding nonviable and/or infected tissue also sharply debrided. Tendons were distracted and divided. There was extraordinarily blood flow in a , although tissues were still technically viable. The wound was packed with dry gauze, and circumferential Kerlix gauze dressing was applied. There were no complications. The patient tolerated the procedure well and was taken to recovery room in stable condition. Job ID: [id number]
[2020-11-20] MEDS: Amoxicillin/Potassium Clav 500 MG TAB PO SCH (09:09)
[2020-11-20] MEDS: HumaLOG 300 UNITS/3 ML VIAL SC PRN ×2 (11:37→16:23)
[2020-11-20 12:03] VITALS: BP 155/75; TEMP 99.2
--- NOTE | 2020-11-20 16:50 | DIS ---
DATE OF ADMISSION: 11/10/2020 DATE OF DISCHARGE: 11/20/2020 DISCHARGE DISPOSITION: Home with [facility]. PRIMARY DISCHARGE DIAGNOSES: The patient has right second toe ray amputation done on 11/18/2020 for dry and wet gangrene, severe peripheral vascular disease, history of intellectual disability, history of left above knee amputation, history of CVA with left hemiparesis, diabetes mellitus type 2, hypertension. PROCEDURES DONE DURING HOSPITALIZATION: The patient has had a right second toe ray amputation done for dry and wet gangrene by Dr. Diallo on 11/18/2020. Chest x- ray showed no acute cardiopulmonary disease. Right toe x-ray done showed findings of osteomyelitis, cellulitis, and fracture of the middle and proximal phalanx of second toe. Blood cultures x2, no growth. Hemoglobin and hematocrit of 9 and 27, platelet count 378, white count of 13, MCV 82. BUN 13, creatinine 0.8, albumin 3.3, serum iron 11, TIBC 188, percent saturation 6, ferritin 289, vitamin B12 of 206, folic acid 6.30. Total cholesterol 121, LDL 81, triglycerides 78, HDL 24, initial CRP was 16.38. DISCHARGE MEDICATIONS: 1. Augmentin 500 mg p.o. twice daily for seven days. 2. Metformin 850 mg p.o. twice daily. 3. Aspirin 81 mg p.o. daily. 4. Ferrous sulfate 325 mg p.o. on alternate days. 5. Folic acid 1 mg p.o. daily. 6. Lipitor 40 mg p.o. at bedtime. 7. Lisinopril 2.5 mg p.o. daily. ALLERGIES: NO KNOWN DRUG ALLERGIES. INPATIENT CONSULT: Dr. Diallo for General Surgery, Dr. Garcia for peripheral vascular disease. DISCHARGE PLAN: The patient to follow up at [facility] in 1 week. She needs to follow up with Dr. Eriberto Diallo in 2 weeks. BRIEF COURSE DURING HOSPITALIZATION: The patient initially got admitted on the with complaints of right foot pain. The patient had gangrene of right second toe with foul-smelling discharge emanating at the base of it. She had initial x-ray done, which showed findings of osteomyelitis and fracture of the right second toe. Ms. Hagen has had history of severe peripheral vascular disease and has had prior left above knee amputation done as well in the past. In view of this, she has had consultation with Dr. Garcia. The patient had poor circulation in the right lower extremity as well. No further intervention was planned by cardiothoracic surgeon. She has had consultation with Dr. Diallo due to foul-smelling discharge coming from the right second toe with dry and wet gangrene. She has had ray amputation done on the 13 after initial course of antibiotics. She still has poor circulation in the foot and the hope is with aggressive wound care, wound VAC, the wound will heal. She needs to follow up with Dr. Diallo in 2 weeks to see the progress of her wound. The patient has underlying intellectual disability with left hemiparesis and left above knee amputation as well, and in view of this, home health with [facility] along with Wound Care and physical therapy has been arranged by Case Management. She needs to follow up with her primary care physician at [facility] in 1 week. I have given complete updates to the patient's in [place] with wired sweatband cutter. She is hemodynamically stable and will be shortly discharged to home. Please note, I have seen and examined the patient on the day of discharge. Job ID: [id number] [facility]PITAL[facility]liver
--- NOTE | 2020-11-21 12:07 | EKG ---
Test Reason : Blood Pressure : / mmHG Vent. Rate : 111 BPM Atrial Rate : 111 BPM P-R Int : 122 ms QRS Dur : 066 ms QT Int : 324 ms P-R-T Axes : 015 002 032 degrees QTc Int : 440 ms Sinus tachycardia Otherwise normal ECG Confirmed by MYRON SPRAGUE DO ([id number]), film editor supervisor JAMIE CROOK ([id number]) on 11/21/2020 12:07:04 PM Referred By: Confirmed By:MYRON SPRAGUE DO
--- NOTE | 2020-11-23 03:36 | PQF ---
Dear : Amina Hanks Date 11/23/2020 Please exercise your independent, professional judgment in responding to the clarification form. Clinical indicators are provided on the bottom of this form for your review Can you please further clarify the nutritional status of the patient? Please check appropriate box(es): [ x ] Protein Calorie Malnutrition: [ ] Mild [ x ] Moderate [ ] Severe [ ] Other Malnutrition (please specify) [ ] Underweight without malnutrition [ ] Cachexia [ ] Other diagnosis [ ] Unable to determine Physician Signature: Date/Time: For continuity of documentation, please document condition throughout progress notes and discharge summary. Thank You. To be completed by CDI/Coding staff for physician review: Present Clinical Indicators - Signs / Symptoms / Labs Results and Location in Medical Record [ x ] BMI 17.6 Nutritional assessment 11/14 [ x ] Moderate muscle loss in clavicle and mild muscle loss in temporal region Nutritional assessment 11/14 [ x ] Weight 10.8kg Nutritional assessment 11/14 [ x ] She has some truncal obesity and very thin extremities Consult pg.2 Present Risk Factors Results and Location in Medical Record [ x ] DM H and P pg.1 [ x ] PVD H and P pg.1 [ x ] L AKA H and P pg.1 [ x ] Sepsis H and P pg.4 [ x ] Cerebral palsy Hospitalist PN pg.4 [ 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 Energy Intake: <75% of estimated energy requirement for > 7 days ? Weight Loss: 1-2%/1 week; 5%/ 1 month; 7.5%/3 months ? Other: mild body fat loss; mild muscle mass loss; mild fluid accumulation; Severe Malnutrition (in acute illness) ? Energy Intake: ? 50% of estimated energy requirement for ? 5 days ? Weight Loss: >2%/1 week; >5%/1 month; >7.5%/3 months ? Other: moderate body fat loss; moderate muscle mass loss; moderate- severe fluid accumulation; measurably reduced knitting inspector strength Moderate Malnutrition (in chronic illness) ? Energy Intake: <75% of estimated energy requirement for ?1 month ? Weight Loss: 5%/1 month; 7.5%/3 months; 10%/6 months; 20%/1 year ? Other: mild body fat loss; mild muscle mass loss; mild fluid accumulation Severe Malnutrition (in chronic illness) ? Energy Intake: ?75% of estimated energy requirement for ?1 month ? Weight Loss: >5%/1 month; >7.5%/3 months; >10%/6 months; >20%/1 year ? Other: severe body fat loss; severe muscle mass loss; severe fluid accumulation; measurably reduced knitting inspector strength This is a permanent part of the Medical Record MTDD
== END 2020-11-20 18:50 | disposition home health service (06) | DRG 854 ==
LOC: ERS 18:59 → 3SE 21:46
PROVIDERS: ADMIT Family Medicine; ATTEND Internal Medicine
PROC: 0Y6M0ZB Detachment at Right Foot, Partial 2nd Ray, Open Approach (ICD-10-PCS; principal; 2020-11-18)
DX: A41.9 Sepsis, unspecified organism (principal); E11.52 Type 2 diabetes mellitus with diabetic peripheral angiopathy with gangrene; I96 Gangrene, not elsewhere classified; M86.171 Other acute osteomyelitis, right ankle and foot; E87.1 Hypo-osmolality and hyponatremia; N17.9 Acute kidney failure, unspecified; E44.0 Moderate protein-calorie malnutrition; Z68.1 Body mass index [BMI] 19.9 or less, adult; E11.69 Type 2 diabetes mellitus with other specified complication; Z20.822 Contact with and (suspected) exposure to COVID-19; N18.30 Chronic kidney disease, stage 3 unspecified; I12.9 Hypertensive chronic kidney disease with stage 1 through stage 4 chronic kidney disease, or unspecified chronic kidney disease; E11.22 Type 2 diabetes mellitus with diabetic chronic kidney disease; G80.9 Cerebral palsy, unspecified; F70 Mild intellectual disabilities; D63.1 Anemia in chronic kidney disease; E11.65 Type 2 diabetes mellitus with hyperglycemia; Z89.612 Acquired absence of left leg above knee; Z99.3 Dependence on wheelchair; Z79.82 Long term (current) use of aspirin; Z79.84 Long term (current) use of oral hypoglycemic drugs; Z79.899 Other long term (current) drug therapy
CPT/HCPCS: 36415; 36416; 71045; 80048; 80053; 80061; 80202; 82550; 82607; 82728; 82746; 83036; 83540; 83550; 83605; 84100; 84134; 84145; 85025; 85610; 85730; 86140; 86850; 86900; 86901; 87040; 87635; 88305; 88311; 93005; 96365; 96367; J0290; J0295; J0692; J2250; J2405; J2704; J3010; J3370; J3490; J7050; S0020; U0003

== ENCOUNTER 2020-12-14 12:28 | Inpatient (IN) | payer MEDICARE, MEDICAID ==
[2020-12-11 12:56] VITALS: BMI 17.4
[2020-12-14 13:55] LABS: SARS-CoV-2 NAA Rapid Test Not Detected (NotDetected)
[2020-12-14] MEDS ORDERED: Ondansetron PF 4 MG/2 ML Vial IVP PRN (14:51)
[2020-12-14] MEDS ORDERED: Promethazine HCl 25 MG/ML VIAL IM PRN (14:51)
[2020-12-14] MEDS ORDERED: hydrALAZINE 20 MG/ML VIAL SLOW IVP PRN (14:51)
[2020-12-14] MEDS ORDERED: Insulin Regular 300 UNITS/3 ML VIAL SC PRN (14:51)
[2020-12-14] MEDS ORDERED: Dextrose 5% in Water 1,000 ML IV PRN (14:51)
[2020-12-14] MEDS ORDERED: Ondansetron ODT 4 MG TAB PO PRN (14:51)
[2020-12-14] MEDS ORDERED: Dextrose 50% Abboject 50 ML SYRINGE SLOW IVP PRN (14:51)
[2020-12-14] MEDS ORDERED: metFORMIN 850 MG TAB PO SCH (17:00)
[2020-12-14] MEDS: D5 1/2 NS w/20 mEq KCL 1,000 ML IV SCH (18:17)
[2020-12-14] MEDS: Famotidine 20 MG TAB PO SCH (21:02)
[2020-12-14] MEDS ORDERED: Acetaminophen 650 MG Suppository PR PRN (21:50)
[2020-12-14 22:16] LABS: #Eosinphils 0.1 thou/uL (0.0-0.7); #Lymphocytes 1.6 thou/uL (1.20-3.40); #Monocytes 0.7 thou/uL (0.11-0.59); #Neutrophils 8.8 thou/uL (1.40-6.50); %Basophils 0.4 % (0.0-1.0); %Eosinophils 1.1 % (0.0-10.0); %Lymphocytes 14.5 % (21.0-51.0); %Monocytes 6.2 % (0.0-10.0); %Neutrophils 77.8 % (42.0-75.0); Hemoglobin 8.7 g/dL (12.0-16.0); Mean Corpuscular HGB CONC 33.3 g/dL (32.0-36.0); Mean Corpuscular Volume 78.2 fL (78.0-98.0); Platelet Count 416 thou/uL (130-400); RBC Distribution Width 12.8 % (11.5-14.5); Red Blood Cell (RBC) Count 3.35 mill/uL (4.20-5.40); White Blood Cell (WBC) Count 11.3 thou/uL (4.8-10.8)
[2020-12-14 22:30] LABS: Lactic Acid 1.5 mmol/L (0.5-2.2)
[2020-12-14 22:34] LABS: Anion Gap 15 mmol/L (10-20); BUN (Urea Nitrogen) 11 mg/dL (9.8-20.1); Calc. Creatinine Clearance 48 mL/min (70-130); Calcium 9.1 mg/dL (7.8-10.44); Carbon Dioxide 26 mmol/L (23-31); Chloride 101 mmol/L (98-107); Glucose 126 mg/dL (80-115); Magnesium 1.3 mg/dL (1.6-2.6); Potassium 4.3 mmol/L (3.5-5.1); Sodium 138 mmol/L (136-145)
[2020-12-15 05:54] LABS: #Basophils 0.1 thou/uL (0.0-0.2); #Eosinphils 0.1 thou/uL (0.0-0.7); #Lymphocytes 1.9 thou/uL (1.20-3.40); #Monocytes 0.8 thou/uL (0.11-0.59); #Neutrophils 7.9 thou/uL (1.40-6.50); %Basophils 0.8 % (0.0-1.0); %Eosinophils 1.3 % (0.0-10.0); %Lymphocytes 17.8 % (21.0-51.0); %Monocytes 7.2 % (0.0-10.0); %Neutrophils 72.9 % (42.0-75.0); Hemoglobin 8.1 g/dL (12.0-16.0); Mean Corpuscular HGB CONC 31.8 g/dL (32.0-36.0); Mean Corpuscular Volume 78.7 fL (78.0-98.0); Mean Platelet Volume 7.1 fL (7.4-10.4); Platelet Count 442 thou/uL (130-400); RBC Distribution Width 12.9 % (11.5-14.5); Red Blood Cell (RBC) Count 3.25 mill/uL (4.20-5.40); White Blood Cell (WBC) Count 10.8 thou/uL (4.8-10.8)
[2020-12-15 06:11] LABS: Anion Gap 15 mmol/L (10-20); BUN (Urea Nitrogen) 12 mg/dL (9.8-20.1); Calc. Creatinine Clearance 50 mL/min (70-130); Carbon Dioxide 23 mmol/L (23-31); Chloride 103 mmol/L (98-107); Glucose 93 mg/dL (80-115); Potassium 4.2 mmol/L (3.5-5.1); Sodium 137 mmol/L (136-145)
[2020-12-15] MEDS: Aspirin 81 mg Enteric Coated Tablet PO SCH (08:40)
[2020-12-15] MEDS: Famotidine 20 MG TAB PO SCH ×2 (08:40→22:07)
[2020-12-15] MEDS: Piperacillin/Tazobactam 3.375 GM in Sodium Chloride 0.9% 100 ML IVPB SCH ×2 (08:48→18:05)
[2020-12-15] MEDS ORDERED: Lisinopril 2.5 MG TAB PO SCH (09:00)
[2020-12-15] MEDS: Vancomycin 1 GM in Premix Bag 1 BAG IVPB SCH (09:02)
[2020-12-15] MEDS: D5 1/2 NS w/20 mEq KCL 1,000 ML IV SCH (11:45)
[2020-12-15] MEDS ORDERED: PHENYLEPHRINE-NS 100 MCG/ML 10 ML SYRINGE ONE (12:02)
[2020-12-15] MEDS ORDERED: Ondansetron PF 4 MG/2 ML Vial ONE (12:02)
[2020-12-15] MEDS ORDERED: Lidocaine 1% PF 5 ML VIAL ONE (12:02)
[2020-12-15] MEDS ORDERED: PROPOFOL 200 MG/20 ML VIAL ONE (12:02)
[2020-12-15] MEDS ORDERED: Magnesium 2 GM/50 ML 2 GM in Premix Bag 1 BAG IVPB SCH (13:00)
[2020-12-15] MEDS ORDERED: Piperacillin/Tazobactam 3.375 GM VIAL ONE (16:17)
[2020-12-15] MEDS ORDERED: Sodium Chloride 0.9% 100 ML ONE (16:18)
[2020-12-15] MEDS ORDERED: Lidocaine 2% Jelly 5 ML TUBE ONE (16:44)
[2020-12-15] MEDS ORDERED: Fentanyl 100 MCG/2 ML VIAL ONE ×4 (16:44→18:56)
[2020-12-15] MEDS ORDERED: Ondansetron HCl/PF 4 MG/2 ML Vial IVP PRN (17:35)
[2020-12-15] MEDS ORDERED: Promethazine HCl 25 MG/ML VIAL IM PRN (17:35)
[2020-12-15] MEDS ORDERED: Promethazine HCl 25 MG/ML VIAL SLOW IVP PRN (17:35)
[2020-12-15] MEDS ORDERED: HYDROcodone/Acetaminophen 5/325 mg Tablet PO PRN (18:40)
[2020-12-15] MEDS: Morphine 2 MG/ML VIAL SLOW IVP PRN (23:26)
[2020-12-16] MEDS: Vancomycin 1 GM in Premix Bag 1 BAG IVPB SCH ×3 (00:35→22:50)
[2020-12-16] MEDS: Piperacillin/Tazobactam 3.375 GM in Sodium Chloride 0.9% 100 ML IVPB SCH ×3 (02:09→17:38)
[2020-12-16] MEDS: HumaLOG 300 UNITS/3 ML VIAL SC PRN ×5 (02:42→20:58)
[2020-12-16] MEDS: Morphine 2 MG/ML VIAL SLOW IVP PRN (04:34)
[2020-12-16] MEDS: D5 1/2 NS w/20 mEq KCL 1,000 ML IV SCH (04:56)
[2020-12-16 05:45] LABS: Cardiac Risk 2.8 (Less than 4.5)
[2020-12-16] MEDS: Famotidine 20 MG TAB PO SCH ×2 (08:22→20:44)
[2020-12-16] MEDS: Aspirin 81 mg Enteric Coated Tablet PO SCH (08:22)
[2020-12-16 13:50] LABS: #Basophils 0.1 thou/uL (0.0-0.2); #Eosinphils 0.1 thou/uL (0.0-0.7); #Monocytes 1.1 thou/uL (0.11-0.59); #Neutrophils 16.6 thou/uL (1.40-6.50); %Basophils 0.5 % (0.0-1.0); %Eosinophils 0.4 % (0.0-10.0); %Lymphocytes 5.3 % (21.0-51.0); %Neutrophils 87.9 % (42.0-75.0); Hemoglobin 8.2 g/dL (12.0-16.0); Mean Corpuscular HGB CONC 32.8 g/dL (32.0-36.0); Mean Corpuscular Hemoglobin 25.9 pg (27.0-31.0); Mean Corpuscular Volume 78.9 fL (78.0-98.0); Mean Platelet Volume 6.7 fL (7.4-10.4); Platelet Count 471 thou/uL (130-400); RBC Distribution Width 13.1 % (11.5-14.5); Red Blood Cell (RBC) Count 3.17 mill/uL (4.20-5.40); White Blood Cell (WBC) Count 18.8 thou/uL (4.8-10.8)
[2020-12-16 14:09] LABS: Anion Gap 15 mmol/L (10-20); BUN (Urea Nitrogen) 10 mg/dL (9.8-20.1); Calc. Creatinine Clearance 39 mL/min (70-130); Carbon Dioxide 23 mmol/L (23-31); Chloride 95 mmol/L (98-107); Potassium 4.4 mmol/L (3.5-5.1); Sodium 129 mmol/L (136-145)
[2020-12-16 14:10] LABS: Calcium 8.9 mg/dL (7.8-10.44); Glucose 343 mg/dL (80-115)
[2020-12-16] MEDS: HYDROcodone/Acetaminophen 5/325 mg Tablet PO PRN (15:58)
[2020-12-17] MEDS: Piperacillin/Tazobactam 3.375 GM in Sodium Chloride 0.9% 100 ML IVPB SCH ×3 (01:26→18:16)
[2020-12-17] MEDS: D5 1/2 NS w/20 mEq KCL 1,000 ML IV SCH (01:37)
[2020-12-17] MEDS: HumaLOG 300 UNITS/3 ML VIAL SC PRN ×2 (05:10→13:00)
[2020-12-17 05:55] LABS: #Basophils 0.1 thou/uL (0.0-0.2); #Eosinphils 0.2 thou/uL (0.0-0.7); #Lymphocytes 1.3 thou/uL (1.20-3.40); #Monocytes 0.7 thou/uL (0.11-0.59); #Neutrophils 10.1 thou/uL (1.40-6.50); %Basophils 0.7 % (0.0-1.0); %Eosinophils 1.3 % (0.0-10.0); %Lymphocytes 10.7 % (21.0-51.0); %Monocytes 5.7 % (0.0-10.0); %Neutrophils 81.6 % (42.0-75.0); Hemoglobin 8.3 g/dL (12.0-16.0); Mean Corpuscular HGB CONC 32.6 g/dL (32.0-36.0); Mean Corpuscular Hemoglobin 25.6 pg (27.0-31.0); Mean Corpuscular Volume 78.7 fL (78.0-98.0); Platelet Count 453 thou/uL (130-400); Red Blood Cell (RBC) Count 3.22 mill/uL (4.20-5.40); White Blood Cell (WBC) Count 12.3 thou/uL (4.8-10.8)
[2020-12-17 06:10] LABS: Anion Gap 14 mmol/L (10-20); BUN (Urea Nitrogen) 8 mg/dL (9.8-20.1); Calc. Creatinine Clearance 44 mL/min (70-130); Calcium 9.1 mg/dL (7.8-10.44); Carbon Dioxide 25 mmol/L (23-31); Chloride 97 mmol/L (98-107); Glucose 334 mg/dL (80-115); Magnesium 1.6 mg/dL (1.6-2.6); Potassium 4.4 mmol/L (3.5-5.1); Sodium 132 mmol/L (136-145)
[2020-12-17] MEDS: Sodium Chloride 0.9% 1,000 ML IV SCH (06:30)
[2020-12-17] MEDS ORDERED: metFORMIN 850 MG TAB PO SCH (08:00)
[2020-12-17] MEDS: Aspirin 81 mg Enteric Coated Tablet PO SCH (09:07)
[2020-12-17] MEDS: Famotidine 20 MG TAB PO SCH (09:07)
[2020-12-17] MEDS: Vancomycin 1 GM in Premix Bag 1 BAG IVPB SCH ×2 (10:09→22:00)
[2020-12-17] MEDS ORDERED: Dextrose 5% in Water 1,000 ML IV PRN (13:36)
[2020-12-17] MEDS ORDERED: Dextrose 50% Abboject 50 ML SYRINGE SLOW IVP PRN (13:36)
[2020-12-17] MEDS ORDERED: HumaLOG 300 UNITS/3 ML VIAL SC PRN (13:36)
[2020-12-17] MEDS ORDERED: metFORMIN 500 MG TAB PO SCH (13:45)
[2020-12-17] MEDS: Acetaminophen 325 MG TAB PO PRN (15:37)
[2020-12-17] MEDS: metFORMIN 500 MG TAB PO SCH (18:15)
[2020-12-17] MEDS: NPH, Human Insulin Isophane 300 UNIT/3 ML VIAL SC SCH (21:58)
[2020-12-18] MEDS: Piperacillin/Tazobactam 3.375 GM in Sodium Chloride 0.9% 100 ML IVPB SCH ×2 (01:07→08:11)
[2020-12-18] MEDS: HYDROcodone/Acetaminophen 5/325 mg Tablet PO PRN (03:45)
[2020-12-18] MEDS: Sodium Chloride 0.9% 1,000 ML IV SCH (04:22)
[2020-12-18 05:07] LABS: Hemoglobin A1c 6.9 % (4.0-6.0)
[2020-12-18 05:23] LABS: Anion Gap 14 mmol/L (10-20); BUN (Urea Nitrogen) 7 mg/dL (9.8-20.1); Calc. Creatinine Clearance 52 mL/min (70-130); Carbon Dioxide 25 mmol/L (23-31); Chloride 103 mmol/L (98-107); Potassium 4.3 mmol/L (3.5-5.1); Sodium 138 mmol/L (136-145)
[2020-12-18 05:24] LABS: Calcium 8.8 mg/dL (7.8-10.44); Glucose 209 mg/dL (80-115)
[2020-12-18 05:25] LABS: #Basophils 0.1 thou/uL (0.0-0.2); #Eosinphils 0.2 thou/uL (0.0-0.7); #Lymphocytes 1.3 thou/uL (1.20-3.40); #Monocytes 0.7 thou/uL (0.11-0.59); #Neutrophils 8.4 thou/uL (1.40-6.50); %Basophils 0.7 % (0.0-1.0); %Eosinophils 2.1 % (0.0-10.0); %Monocytes 6.8 % (0.0-10.0); %Neutrophils 78.4 % (42.0-75.0); Hemoglobin 7.6 g/dL (12.0-16.0); Mean Corpuscular HGB CONC 32.5 g/dL (32.0-36.0); Mean Corpuscular Hemoglobin 25.7 pg (27.0-31.0); Platelet Count 401 thou/uL (130-400); RBC Distribution Width 12.9 % (11.5-14.5); Red Blood Cell (RBC) Count 2.95 mill/uL (4.20-5.40); White Blood Cell (WBC) Count 10.7 thou/uL (4.8-10.8)
[2020-12-18] MEDS: metFORMIN 500 MG TAB PO SCH (08:02)
[2020-12-18] MEDS: Acetaminophen 325 MG TAB PO PRN (08:03)
[2020-12-18] MEDS: NPH, Human Insulin Isophane 300 UNIT/3 ML VIAL SC SCH (08:05)
[2020-12-18] MEDS: Aspirin 81 mg Enteric Coated Tablet PO SCH (08:11)
[2020-12-18] MEDS ORDERED: Famotidine 20 MG TAB PO SCH (09:00)
[2020-12-18 11:58] VITALS: BP 130/75; TEMP 98.2
[2020-12-18] MEDS: HumaLOG 300 UNITS/3 ML VIAL SC PRN (12:20)
== END 2020-12-18 14:25 | DRG 240 ==
LOC: SDC 12:28 → SURG B 13:01
PROVIDERS: ADMIT Specialist; ATTEND Internal Medicine
PROC: 0Y6H0Z1 Detachment at Right Lower Leg, High, Open Approach (ICD-10-PCS; principal; 2020-12-15)
DX: E11.52 Type 2 diabetes mellitus with diabetic peripheral angiopathy with gangrene (principal); I96 Gangrene, not elsewhere classified; E87.1 Hypo-osmolality and hyponatremia; Z20.822 Contact with and (suspected) exposure to COVID-19; E11.22 Type 2 diabetes mellitus with diabetic chronic kidney disease; I12.9 Hypertensive chronic kidney disease with stage 1 through stage 4 chronic kidney disease, or unspecified chronic kidney disease; N18.9 Chronic kidney disease, unspecified; E83.42 Hypomagnesemia; D72.829 Elevated white blood cell count, unspecified; E11.65 Type 2 diabetes mellitus with hyperglycemia; G80.9 Cerebral palsy, unspecified; F79 Unspecified intellectual disabilities; Z89.612 Acquired absence of left leg above knee; Z79.899 Other long term (current) drug therapy; Z79.84 Long term (current) use of oral hypoglycemic drugs; Z79.82 Long term (current) use of aspirin
CPT/HCPCS: 36415; 36416; 71045; 80048; 80061; 83036; 83605; 83735; 85025; 88307; 88311; 93005; 93010; J0360; J1815; J2270; J2405; J2543; J2704; J3010; J3370; J3475; J3480; J3490; Q0162; U0002

== ENCOUNTER 2022-03-24 12:24 | Outpatient (CLI) | payer MEDICARE, MEDICAID | END 2022-03-24 12:25 | disposition home or self-care (01) | LOC: BICULT 12:24 | PROVIDERS: ATTEND Internal Medicine | DX: E11.9 Type 2 diabetes mellitus without complications (principal); I10 Essential (primary) hypertension; R09.89 Other specified symptoms and signs involving the circulatory and respiratory systems; I65.23 Occlusion and stenosis of bilateral carotid arteries | CPT/HCPCS: 93880 ==